=== PATIENT | male | born 1970 | race Caucasian/White ===

== ENCOUNTER 2024-10-19 23:11 | Emergency (ER) | payer BC, SELFPAY ==
--- NOTE | ~2024-10-19 | CT_ITS ---
CLINICAL INDICATION: Left groin pain. Dysuria. COMPARISON: None. TECHNIQUE: Multiple contiguous axial images of the abdomen and pelvis were performed without the admi nistration of intravenous contrast The dose-length product (DLP) was 1397.55 mGy-cm. Automated exposure control and iterative reconstruction technique were employed. FINDINGS/OBSERVATIONS: Visualized lower thorax: Interstitial thickening within the bilateral lung bases. The remainder of the lungs are clear. The heart is of normal size, without pericardial effusion. Small hiatal hernia is present. Liver: The liver demonstrates homogeneous attenuation and is not enlarged measuring 16 cm in longitudinal di mension. Gallbladder and biliary system: The gallbladder is surgically absent. Pancreas: Limited evaluation of the pancreas secondary to the lack of intravenous contrast. Spleen: The spleen demonstrates homogeneous attenuation and is not enlarged measuring 8 cm in longitudinal di mension. Kidneys: A 3 mm nonobstructing calculus is identified within the upper pole of the left kidney. Mild left-sided hydroureteronephrosis extending to the left ureterovesicular junction where a 6.5 mm calculus is identified. The right kidney and ureter are unremarkable. Adrenal glands: Unremarkable. Gastrointestinal tract: Unremarkable. Appendix: The appendix is not definitively visualized. However, no pericecal inflammatory change is identified suggest the presence of acute appendicitis. Vasculature: Unremarkable. Lymph nodes: No pathologically enlarged or morphologically suspicious lymph nodes within the retroperitoneum or at the root of the mesentery. Pelvic structures: The bladder is only minimally distended, and contains the complex 6.5 mm calcified stone. The prostate gland is not enlarged. Body wall and musculoskeletal: Trace degenerative disease within the lumbosacral spine at the level of L5/S1 with osteophyte formati on and disc space narrowing. IMPRESSION: Mild left-sided hydroureteronephrosis secondary to a 6.5 mm stone within the distal margin of the lef t ureterovesicular junction, likely recently passed. Reviewed, dictated and finalized at location A. TECH IMPRESSION: Mild left-sided hydroureteronephrosis secondary to a 6.5 mm stone within the di stal margin of the left ureterovesicular junction, likely recently passed.
[2024-10-19 23:15] VITALS: BP 121/83; PULSE 90; RESP 22; TEMP 36.6; O2SAT 99
[2024-10-19 23:26] LABS: Basophils Absolute Auto 0.1 K/mm3 (0.0-0.1); Basophils Percent Auto 0.7 % (0.2-1.2); Eosinophils Absolute Auto 0.4 K/mm3 (0-0.3); Eosinophils Percent Auto 4.4 % (0-4.4); Hematocrit 46.7 % (42.0-52.0); Hemoglobin 16.2 g/dL (14.0-18.0); Immature Granulocyte Absolute 0.01 K/mm3 (0.00-0.031); Immature Granulocyte Percent A 0.1 % (0-0.5); Lymphocytes Absolute Auto 3.15 K/mm3 (0.9-3.2); Lymphocytes Percent Auto 37.9 % (18.3-44.2); Mean Corpuscular HGB Conc 34.7 g/dl (32-36); Mean Corpuscular Hemoglobin 31.2 pg (26-34); Mean Corpuscular Volume 89.8 fl (80-100); Mean Platelet Volume 9.2 fl (7.4-10.4); Monocytes Absolute Auto 0.8 K/mm3 (0.1-0.6); Monocytes Percent Auto 9.1 % (2.6-8.5); Neutrophils Percent Auto 47.8 % (45.5-73.1); Platelet Count Result 316 k/mm3 (150-375); Red Cell Distribution Width 13.3 % (11.5-14.5); White Blood Count 8.3 K/mm3 (4.5-10.0)
[2024-10-19 23:35] LABS: Alanine Aminotransferase 33 U/L (6-50); Albumin Level 4.9 g/dL (3.5-5.1); Alkaline Phosphatase 52 U/L (38-126); Anion Gap 12 mmol/L (4-12); Aspartate Amino Transferase 27 U/L (17-59); Blood Urea Nitrogen 18 mg/dL (9-20); Calcium 9.8 mg/dL (8.4-10.2); Carbon Dioxide 26 mmol/L (22-30); Chloride 104 mmol/L (98-107); Estimated CRCL calculation 100 ml/min; Estimated Glomerular Filt Rate > 60; Glucose 106 mg/dL (65-110); Lipase 159 U/L (23-300); Potassium 3.7 mmol/L (3.4-5.0); Sodium 142 mmol/L (137-145)
--- NOTE | 2024-10-19 23:46 | ED_ITS ---
HPI - Abdominal Pain General Chief Complaint: Abdominal Pain Stated Complaint: I think Im passing a kidney stone Time Seen by Provider: 10/19/24 23:27 Source: patient Mode of arrival: ambulatory Limitations: no limitations History of Present Illness HPI narrative: This is a 54 year old male that presents to the ER for left lower abdominal pain. Ongoing over the last hour. Reports associated nausea. Also reports dysuria. Denies fevers, vomiting, hematuria. Related Data Allergies Allergy/AdvReac Type Severity Reaction Status Date / Time No Known Allergies Allergy Verified 10/19/24 23:18 Review of Systems 2 Review of Systems: CONSTITUTIONAL: Denies fever GASTROINTESTINAL: Reports abdominal pain, nausea. Denies vomiting, or diarrhea. GENITOURINARY: Denies hematuria. All systems reviewed & are unremarkable except as noted in HPI and below PMFSH Past Medical History Medical History (Updated 10/20/24 @ 01:19 by Sherir Craft PA-C) History of hyperlipidemia Social History Social History (Updated 10/20/24 @ 01:19 by Sherri Craft PA-C) Smoking status: Never smoker Exam 2 Narrative: GENERAL: Uncomfortable, well-nourished, and in no acute distress. HEAD: Normocephalic, atraumatic. EYES: EOMI. CHEST: Clear to auscultation. No respiratory distress. No wheezes rales or rhonchi HEART: Regular rate and rhythm. No murmur heard. Normal peripheral pulses. ABDOMEN: Soft, nontender, nondistended, normal active bowel sounds. EXTREMITIES: Normal range of motion. No edema. SKIN: Warm, dry, no rash. NEURO: No focal deficits. Alert and oriented x3. PSYCH: Normal mood and affect Course Course Emergency Course: patient updated on his workup. Resting comfortably Vital Signs Vital signs: Vital Signs Temperature 98 F 10/19/24 23:15 Pulse Rate 90 10/19/24 23:15 Respiratory Rate 22 H 10/19/24 23:15 Blood Pressure 121/83 10/19/24 23:15 Pulse Oximetry 99 10/19/24 23:15 Oxygen Delivery Room Air 10/19/24 23:15 Temperature 98 F 10/19/24 23:15 Pulse Rate 90 10/19/24 23:15 Respiratory Rate 22 H 10/19/24 23:15 Blood Pressure 121/83 10/19/24 23:15 Pulse Oximetry 99 10/19/24 23:15 Oxygen Delivery Room Air 10/19/24 23:15 MDM - Abdominal Pain MDM Narrative Medical decision making narrative: Patient presents to the emergency department for left-sided lower abdominal pain. He is afebrile and nontoxic appearing. Cbc without leukocytosis. Metabolic panel with normal kidney function. Urine with red blood cells, no signs of infection. CT abdomen pelvis shows a 6.5 mm stone in the left UVJ. patient updated on his workup. Resting comfortably. Reports he has an appointment with Urology on Thursday. He was given warnings to return to the ER Differential Diagnosis Differential diagnosis: Likely calculus of kidney and diverticulitis Lab Data Attestation: I reviewed the patient's lab results. 10/19/24 23:20 10/19/24 23:20 Labs: Lab Results 10/19/24 10/19/24 Range/Units 23:20 23:52 WBC 8.3 (4.5-10.0) K/mm3 RBC 5.20 (4.6-6.20) M/mm3 Hgb 16.2 (14.0-18.0) g/dL Hct 46.7 (42.0-52.0) % MCV 89.8 (80-100) fl MCH 31.2 (26-34) pg MCHC 34.7 (32-36) g/dl RDW 13.3 (11.5-14.5) % Plt Count 316 (150-375) k/mm3 MPV 9.2 (7.4-10.4) fl Immature Gran % (Auto) 0.1 (0-0.5) % Neut % (Auto) 47.8 (45.5-73.1) % Lymph % (Auto) 37.9 (18.3-44.2) % Bee % (Auto) 9.1 H (2.6-8.5) % Eos % (Auto) 4.4 (0-4.4) % Baso % (Auto) 0.7 (0.2-1.2) % Lymph # (Auto) 3.15 (0.9-3.2) K/mm3 Bee # (Auto) 0.8 H (0.1-0.6) K/mm3 Eos # (Auto) 0.4 H (0-0.3) K/mm3 Baso # (Auto) 0.1 (0.0-0.1) K/mm3 Abs Immat Gran (auto) 0.01 (0.00-0.031) K/mm3 Absolute Neuts (auto) 4.0 (1.3-6.7) K/mm3 Absolute Nucleated RBC 0.000 (0.0-0.012) K/mm3 Nucleated RBC % 0.0 (0.0-0.2) % Sodium 142 (137-145) mmol/L Potassium 3.7 (3.4-5.0) mmol/L Chloride 104 (98-107) mmol/L Carbon Dioxide 26 (22-30) mmol/L Anion Gap 12 (4-12) mmol/L BUN 18 (9-20) mg/dL Creatinine 0.90 (0.7-1.3) mg/dL Estim Creat Clear Calc 100 ml/min Estimated GFR > 60 (59 - ) Glucose 106 (65-110) mg/dL Calcium 9.8 (8.4-10.2) mg/dL Total Bilirubin 1.0 (0.2-1.3) mg/dL AST 27 (17-59) U/L ALT 33 (6-50) U/L Alkaline Phosphatase 52 (38-126) U/L Total Protein 8.0 (6.3-8.2) g/dL Albumin 4.9 (3.5-5.1) g/dL Lipase 159 (23-300) U/L Urine Color Yellow (Yellow) Urine Appearance Clear (Clear) Urine pH 5.0 (5.0-9.0) Ur Specific [place] 1.029 (1.001-1.035) Urine Protein Negative (Negative) mg/dL Urine Glucose (UA) Negative (Negative) mg/dL Urine Ketones Trace H (Negative) mg/dL Ur Blood (Man) 1+ H (Negative) Urine Nitrate Negative (Negative) Urine Bilirubin Negative (Negative) Urine Urobilinogen 1.0 (<2.0) mg/dL Leukocyte Esterase Rfl Negative (Negative) IVY/UL Urine RBC 11-20 H (0-2) /hpf Urine WBC 0-5 (0-3) /hpf Ur Squamous Epith Cells None seen (Few) /hpf Urine Bacteria None seen /hpf Urine Casts 0-2 Imaging Data Radiologist's impression: ITS Impressions Abdomen/Pelvis CT 10/20/24 00:21 IMPRESSION: Mild left-sided hydroureteronephrosis secondary to a 6.5 mm stone within the distal margin of the left ureterovesicular junction, likely recently passed. Critical Care Time Critical Care Time Critical Care Time: No Discharge Plan Discharge Clinical Impression: Kidney stone on left side Patient Disposition: Home, Self-Care Condition: Improved Instructions: Kidney Stones (ED), How to Strain Your Urine (ED) Additional Instructions: Return to the ER if you experience fever, abdominal pain with nausea and vomiting, you are unable to keep down liquids or solids, or any other symptoms that are concerning to you Remain well hydrated. [id number] pain medication as needed. Prescribed pain medication as needed. Take tamsulosin as prescribed Follow up with urology at your scheduled appointment Patient Language: Uzbek Prescriptions: New tamsulosin 0.4 mg capsule 0.4 mg PO DAILY 7 Days Qty: 7 0RF hydrocodone-acetaminophen 5-325 mg tablet 1 tablet PO Q6H PRN (Reason: pain) Qty: 20 0RF Follow-up/Referrals: UNKNOWN,DOCTOR [Primary Care Provider] - Justus Bhardwaj MD [Physician] -
[2024-10-19] MEDS: MORPHINE SULFATE (*CRX) 4 MG/ML INJ IV PUSH (23:54)
[2024-10-19] MEDS: ONDANSETRON INJ 4 MG/2 ML VIAL IV PUSH (23:54)
[2024-10-20 00:12] LABS: Add Urine Microscopic? YES; Appearance Urine Clear (Clear); Bacteria Urine None Seen /hpf; Bilirubin Urine Negative (Negative); Blood Urine 1+ (Negative); Color Urine Yellow (Yellow); Glucose Urine UA Negative (Negative); Ketones Urine Trace mg/dL (Negative); Leukocyte Esterase Ur Negative LEU/UL (Negative); Nitrate Urine Negative (Negative); Non Pathogenic Casts 0-2; Protein Urine Negative (Negative); Specific Grav Ur 1.029 (1.001-1.035); Squamous Epithelial Cell Urine None Seen /hpf (Few); WBC Urine 0-5 /hpf (0-3)
--- OUTSIDE RECORDS SUMMARY | 2024-10-20 00:41 | XMS_ITS | Referral Summary ---
Author Organization [facility] Address [address] [place] [address] Care Team Providers Care Gluing Machine Operator Automatic Name Role Phone Alix Hernandez Primary Care Provider + Allergies No known active allergies Medications gemfibroziL (LOPID) 600 mg tabletIndicatio ns:Hypertriglyc eridemia Take 1 tablet (600 mg total) by mouth daily 90 tablet 3 3 Active icosapent ethyL (Vascepa) 1 gram capsule Take 2 capsules (2 g total) by mouth 2 (two) times a day 360 capsule 3 3 Active HYDROcodone-justin taminophen (NORCO) 5-325 mg per tabletIndicatio ns:Pain Take 1 tablet by mouth every 6 (six) hours as needed for pain 10 tablet 4 Active albuterol HFA (PROVENTIL HFA,VENTOLIN HFA,PROAIR HFA) 90 mcg/actuation inhaler Inhale 2 puffs every 4 (four) hours as needed for shortness of breath 6.7 g 4 Active Active Problems Problem Noted Date Diagnosed Date Vitamin D deficiency 11/05/2016 Assessment & Plan (05/18/2023 4:22 PM CDT): Start OTC Vitamin D supplement, 8791-1522 international units daily Assessment & Plan (10/01/2022 4:23 PM HE[employer] RECORDS TECHNOLOGY TEACHER): Recheck levels with next set of labs Chronic pancreatitis (CMS/HCC) 02/20/2016 Hypertriglyceridemia 02/20/2016 Assessment & Plan (05/18/2023 4:22 PM CDT): Stable, no changes. Continue current regimen with Vascepa and Lopid Assessment & Plan (10/01/2022 4:23 PM HEALTH RECORDS TECHNOLOGY TEACHER): Lipid panel worsening Noncompliant with diet/exercise Will work on this Increase lopid to 600mg BID Restart vascepa - will see if insurance will cover. If not, ok to go back to fish oil as previously doing Assessment & Plan (05/29/2020 8:00 PM CDT): Triglycerdies worsening, but total and LDL cholesterol decreased. Will restart his Lopid, once daily. May continue fish oil - warned of risk of elevated LDL, but historically, LDL decreased with fish oil use Hypogonadism in male 02/20/2016 Assessment & Plan (05/18/2023 4:22 PM CDT): Endo referral Check testosterone levels Immunizations Name Administration Dates Next Due Influenza, Quadrivalent, Spl it, Intramuscular 07/03/2016 Influenza, Unspecified 06/07/2022(Deferr ed: Patient decision),06/07/2021(Deferred: Patient decision),06/07/2020(Deferred: Patient Refused),06/07/2019(Deferred: Patient Refused) Social History Tobacco Use Types Packs/Day Years Used Date Smoking Tobacco: Never Smokeless Tobacco: Never Tobacco Cessation:Counseling Given: Not Answered Alcohol Use Standard Drinks/Week Comments Never 0 (1 standard drink = 0.6 oz pur e alcohol) AUDIT-C Answer Date Recorded Q1: How often do you have a drink containing alc ohol? Never 07/16/2021 Average Number of Drinks Not on file 021 Q3: How often do you have si x or more drinks on one occasion? Never 07/16/2021 PHQ-2 Answer Date Recorded PHQ-2 Total Score (If total score is 3 or more points, staff should administer the PHQ-9) 0 10/01/2022 Personal Safety Answer Date Recorded Have you ever been in or are you currently in a harmful physical or emotional relationship or is someone making you feel afraid or unsafe? Denies 09/08/2023 Sex and Gender Information Value Date Recorded Sex Assigned at Not on file Legal Sex Male 5:28 PM HEALTH RECORDS TECHNOLOGY TEACHER Gender Identity Not on file Sexual Orientation Not on file Last Filed Vital Signs Vital Sign Reading Time Taken Comments Blood Pressure 134/89 09/08/2023 11:35 PM HE[employer] RECORDS TECHNOLOGY TEACHER Pulse 75 09/08/2023 11:58 PM HE[employer] RECORDS TECHNOLOGY TEACHER Temperature 36.6 C (97.9 F) 09/08/2023 9:49 PM HE[employer] RECORDS TECHNOLOGY TEACHER Respiratory Rate 20 09/08/2023 11:58 PM HE[employer] RECORDS TECHNOLOGY TEACHER Oxygen Saturation 97% 09/08/2023 11:58 PM HE[employer] RECORDS TECHNOLOGY TEACHER Inhaled Oxygen Concentration - - Weight 104.3 kg (229 lb 15 oz) 09/08/2023 9:49 P M HE[employer] TECH[employer]OLOGY TEACHER Height 177.8 cm (5' 10 ) 09/08/2023 9:49 PM HE[employer] RECORDS TECHNOLOGY TEACHER Body Mass Index 32.99 09/08/2023 9:49 PM HE[employer] RECORDS TECHNOLOGY TEACHER Plan of Treatment Not on file Procedures Procedure Name Priority Date/Time Associated Diagnosis Comments PSA SCREEN Routine 01/18/2022 7:53 AM CDT Screening for prostate cancer from Last 3 Months or Most Recently Relevant to Health Maintenance Results * PSA screen (01/18/2022 7:53 AM CDT) PSA 0.74 < OR = 4.00 ng/mL [facility] Comment: The total PSA value from this assay system is standardized against the WHO standard. The test result will be approximately 20% lower when compared to the equimolar-standardized total PSA (Bogdan Goldy). Comparison of serial PSA results should be interpreted with this fact in mind. This test was performed using the Siemens chemiluminescent method. Values obtained from different assay methods cannot be used interchangeably. PSA levels, regardless of value, should not be interpreted as absolute evidence of the presence or absence of disease. Blood specimen (specimen) 01/18/2022 7:53 AM CDT 01/18/2022 7:53 AM CDT Narrative [facility] - 01/19/2022 10:39 AM CDT FASTING:YES FASTING: YES Bridgette ROSADO LAB BLOOD ORDERABLES Final Resul t [facility] [id number] [id number] from Last 3 Months or Most Recently Relevant to Health Maintenance Insurance INTTRA PR INTTRA PR Care Teams Gluing Machine Operator Automatic Relationship Specialty Start Date End Date Alix Hernandez PA PCP - General Family Medicine 09/25/20
--- OUTSIDE RECORDS SUMMARY | 2024-10-20 00:42 | XMS_ITS | Patient Health Summary ---
Author Organization [facility] Address [address] [place] [address] Care Team Providers Care Tool Engineer Name Role Phone Paco Tian DO Primary Care Provider [phone] Note from [facility],non-owned Affiliates and Associated Physician Practices is amultiple site organization consisting of ambulatory clinics and hospital sitesin [place], [place], [place] and [place]. This disclosure is being madepursuant to the Care Everywhere program and may not contain all information available regarding this patient. Last updated 18.[facility] Allergies No known active allergies Medications * Be aware that medications may not be up to date on this document. Alwaysverify current medications with the patient. * Fritch-3 Fatty Acids (fish oil) 500 MG capsule Take 1,500 (one thousand five hundred) mg by mouth 4 times daily * gemfibrozil (Lopid) 600 MG tablet(Started 08/08/2024) Take 1 (one) tablet by mouth 2 times daily 3 refills by 08/08/2025 Ended Medications* cephalexin (Keflex) 500 MG capsule(Started 10/12/2024)() Take 1 (one) capsule by mouth 2 times daily for 7 days Active Problems Problem Noted Date Diagnosed Date Vitamin D deficiency 11/05/2016 10/09/2023 Chronic pancreatitis 02/20/2016 10/09/2023 Hypertriglyceridemia 02/20/2016 10/09/2023 Hypogonadism in male 02/20/2016 10/09/2023 Immunizations * FLU VACCINE QUAD IIV4 SPLIT 0.25 ML IM(Given 07/03/2016) Social History Tobacco Use Types Packs/Day Years Used Date Smoking Tobacco: Never Smokeless Tobacco: Never Tobacco Cessation:Counseling Given: Not Answered Alcohol Use Standard Drinks/Week Comments Never 0 (1 standard drink = 0.6 oz pur e alcohol) PHQ-2 Answer Date Recorded Patient Health Questionnaire-2 Score 0 10/12/2024 Sex and Gender Information Value Date Recorded Sex Assigned at Not on file Gender Identity Not on file Sexual Orientation Not on file Last Filed Vital Signs Vital Sign Reading Time Taken Comments Blood Pressure 118/82 10/12/2024 7:46 AM YARD SWITCHER Pulse 65 10/12/2024 7:46 AM YARD SWITCHER Temperature - - Respiratory Rate 18 2024 1:18 PM YARD SWITCHER Oxygen Saturation 98% 10/12/2024 7:46 AM YARD SWITCHER Inhaled Oxygen Concentration - - Weight 102.5 kg (226 lb) 10/12/2024 7:46 AM YARD SWITCHER Height 177.8 cm (5' 10 ) 2024 1:18 PM YARD SWITCHER Body Mass Index 32.43 2024 1:18 PM YARD SWITCHER Procedures * URINALYSIS - POINT OF CARE(Performed 10/12/2024) Performed for Frequency of urination * HEMOGLOBIN A1C - POINT OF CARE (AMB)(Performed 08/19/2024) Performed for Elevated glucose * COMPREHENSIVE METABOLIC PANEL(Performed 08/08/2024) * CBC W AUTO DIFFERENTIAL(Performed 08/08/2024) * HEMOGLOBIN A1C(Performed 08/08/2024) * PROSTATE SPECIFIC ANTIGEN SCREEN(Performed 08/08/2024) * LIPID PROFILE(Performed 08/08/2024) * COLOGUARD TEST(Performed 11/06/2023) Performed for Encounter for colorectal cancer screening * LAB RESULTS ORDER(Performed 05/02/2023) * LAB RESULTS ORDER(Performed 09/13/2022) * LAB RESULTS ORDER(Performed 01/19/2022) Results * URINALYSIS - POINT OF CARE (10/12/2024) Clarity UA POCT clear Color UA POCT yellow Leukocyte UA negative Negative Nitrite UA POCT negative Negative Urobilinogen UA 0.2 0.1 - 1.0 Protein UA POCT negative Negative pH UA 6.0 5.0 - 8.0 pH units Blood UA negative Negtive Specific [place] UA POCT 1.010 1.002 - 1.030 Ketone UA negative Negative Bilirubin UA POCT negative Negative Glucose UA negative Negative Urine URINE / Unknown 10/12/2024 Brianda Jiang APRN-CHILD CARE TEAM LEAD LAB - POINT OF C ARE ORDERABLES * HEMOGLOBIN A1C - POINT OF CARE (HgbA1C) (08/19/2024 8:42 AM YARD SWITCHER) Pathologist [facility] Hemoglobin A1c POCT 5.4 % [facility] Expiration Date 08/10/2025 [facility] Lot # [id number] [facility] QC Verified Yes Yes [facility] Blood BLOOD SPECIMEN / Unknown 08/19/2024 8:42 AM YARD SWITCHER Paco Tian DO LAB - POINT OF CARE ORDERABLES [facility] [address] [place] [address], [facility] [phone] * (ABNORMAL) COMPREHENSIVE METABOLIC PANEL (08/08/2024 7:12 AM YARD SWITCHER) Pathologist [facility] Glucose 106(H) 65 - 99 mg/dL [facility] Comment: Fasting reference interval For someone without known diabetes, a glucose value between 100 and 125 mg/dL is consistent with prediabetes and should be confirmed with a follow-up test. BUN 16 7 - 25 mg/dL [facility] Creatinine 0.79 0.70 - 1.30 mg/dL [facility] eGFR by Cystatin C 108 > OR = 60 mL/min/1. 73m2 [facility] BUN/Creatinine Ratio SEE NOTE: 6 - 22 (calc) [facility] Comment: Not Reported: BUN and Creatinine are within reference range. Sodium 140 135 - 146 mmol/L [facility] Potassium 4.5 3.5 - 5.3 mmol/L [facility] Chloride 104 98 - 110 mmol/L [facility] CO2 30 20 - 32 mmol/L [facility] Calcium 9.9 8.6 - 10.3 mg/dL [facility] Protein Total 7.1 6.1 - 8.1 g/dL [facility] Albumin 4.6 3.6 - 5.1 g/dL [facility] Globulin Total 2.5 1.9 - 3.7 g/dL (calc) [facility] Albumin/Globulin Ratio 1.8 1.0 - 2.5 (calc) [facility] Bilirubin Total 0.7 0.2 - 1.2 mg/dL [facility] Alkaline Phosphatase 50 35 - 144 U/L [facility] AST 20 10 - 35 U/L [facility] ALT 30 9 - 46 U/L [facility] Comment: Test Performed at: [facility] [id number] [id number] CHATO REED MD 08/08/2024 7:12 AM YARD SWITCHER 08/08/2024 7:12 AM YARD SWITCHER Paco Tian DO LAB - CHEMISTRY [place] [facility] [address] [place] [address] * CBC WITH DIFFERENTIAL (08/08/2024 7:10 AM YARD SWITCHER) White Blood Cell Count 5.5 3.8 - 10.8 Thousand/u L [facility] RBC 4.76 4.20 - 5.80 Million/uL [facility] Hemoglobin 15.0 13.2 - 17.1 g/dL [facility] Hematocrit 42.8 38.5 - 50.0 % [facility] MCV 89.9 80.0 - 100.0 fL [facility] MCH 31.5 27.0 - 33.0 pg [facility] MCHC 35.0 32.0 - 36.0 g/dL [facility] Comment: For adults, a slight decrease in the calculated MCHC value (in the range of 30 to 32 g/dL) is most likely not clinically significant; however, it should be interpreted with caution in correlation with other red cell parameters and the patient's clinical condition. RDW 12.7 11.0 - 15.0 % [facility] Platelet Count 287 140 - 400 Thousand/u L [facility] MPV 9.8 7.5 - 12.5 fL [facility] Neutrophil Absolute 2849 1500 - 7800 cells/uL [facility] Lymphocytes Absolute 1958 850 - 3900 cells/uL [facility] Absolute Monocytes 473 200 - 950 cells/uL [facility] Eosinophils Absolute 160 15 - 500 cells/uL [facility] Basophils Absolute 61 0 - 200 cells/uL [facility] Granulocytes % 51.8 % [facility] Lymphocytes % 35.6 % [facility] Monocytes % 8.6 % [facility] Eosinophils % 2.9 % [facility] Basophils % 1.1 % [facility] Comment: Test Performed at: [facility] [id number] [id number] CHATO REED MD 08/08/2024 7:10 AM YARD SWITCHER 08/08/2024 7:11 AM YARD SWITCHER Paco Tian DO LAB - HEMATOLOGY ORD ERABLES Performing Organization Address [facility] de Phone Number [place] [phone] * HEMOGLOBIN A1C (08/08/2024 7:07 AM YARD SWITCHER) Hemoglobin A1c TNP % of total Hgb [facility] Comment: TEST NOT PERFORMED The specimen type required for the add-on test was not originally collected. Test Performed at: [facility] [email or web address] [place] [id number] CHATO REED MD 08/08/2024 7:07 AM YARD SWITCHER 08/08/2024 7:08 AM YARD SWITCHER Paco Tian DO LAB - CHEMISTRY ORDE RABADRIANA Performing Organization Address [facility] [place] [address] * PROSTATE SPECIFIC ANTIGEN SCREEN (08/08/2024 7:07 AM YARD SWITCHER) PSA 0.88 < OR = 4.00 ng/mL [facility] Comment: The total PSA value from this [...] of the presence or absence of disease. Test Performed at: [facility] [address] [place] [place] [id number] CHATO REED MD 08/08/2024 7:07 AM YARD SWITCHER 08/08/2024 7:08 AM YARD SWITCHER Paco Tian DO LAB - CHEMISTRY ORDE RABADRIANA Performing Organization Address [facility] [place] [address] * (ABNORMAL) LIPID PROFILE (08/08/2024 7:07 AM YARD SWITCHER) Cholesterol 212(H) <200 mg/dL [facility] HDL Cholesterol 40 > OR = 40 mg/dL [facility] Triglycerides 358(H) <150 mg/dL [facility] Comment: If a non-fasting specimen was collected, consider repeat triglyceride testing on a fasting specimen if clinically indicated. Ace et al. J. of Clin. Lipidol. 2015;9:129-169. LDL Calculated 121(H) mg/dL (calc) [facility] Comment: Reference range: <100 Desirable range <100 mg/dL for primary prevention; <70 mg/dL for patients with CHD or diabetic patients with > or = 2 CHD risk factors. LDL-C is now calculated using the Reinaldo-Ro calculation, which is a validated novel method providing better accuracy than the Friedewald equation in the estimation of LDL-C. Reinaldo COLBERT et al. ANTOINE. 2013;310(19): 8253-2784 (http://education.[employer]/faq/TSR239) CHOL/HDLC RATIO 5.3(H) <5.0 (calc) [facility] Non HDL Cholesterol 172(H) <130 mg/dL (calc) [facility] Comment: For patients with diabetes plus 1 major ASCVD risk factor, treating to a non-HDL-C goal of <100 mg/dL (LDL-C of <70 mg/dL) is considered a therapeutic option. Test Performed at: [facility] [address] [place] [address] CHATO REED MD 08/08/2024 7:07 AM YARD SWITCHER 08/08/2024 7:08 AM YARD SWITCHER Paco Tian DO LAB - CHEMISTRY [address] [place] [address] [place] [address] * COLOGUARD TEST (11/06/2023 8:30 AM YARD SWITCHER) Cologuard Negative Negative [facility] Comment: NEGATIVE TEST RESULT. A negative Cologuard result indicates a low likelihood that a colorectal cancer (CRC) or advanced adenoma (adenomatous polyps with more advanced pre-malignant features) is present. The chance that a person with a negative Cologuard test has a colorectal cancer is less than 1 in 1500 (negative predictive value >99.9%) or has an advanced adenoma is less than 5.3% (negative predictive value 94.7%). These data are based on a prospective cross-sectional study of 10,000 individuals at average risk for colorectal cancer who were screened with both Cologuard and colonoscopy. (Javon Vidal al, N Engl J Med 2014;370(14):5482-0158) The normal value (reference range) for this assay is negative. COLOGUARD RE-SCREENING RECOMMENDATION: Periodic colorectal cancer screening is an important part of preventive healthcare for asymptomatic individuals at average risk for colorectal cancer. Following a negative Cologuard result, the [place] [employer] Society and U.S. Multi-Society Task Force screening guidelines recommend a Cologuard re-screening interval of 3 years. References: [place] [employer] Guideline for Colorectal Cancer Screening: https://www.cancer.org/cancer/lbdgy-megwnn-uakdvw/npehgnoax-nrfjhhtpz-uzuyauu/ acs-recommendations.html.; Mateo DK, Delon CR, Shadia McintoshK, Colorectal Cancer Screening: Recommendations for Physicians and Patients from the U.S. Multi-Society Task Force on Colorectal Cancer Screening , Am J Gastroenterology 2017; 112:8764-9827. TEST DESCRIPTION: Composite algorithmic analysis of stool DNA-biomarkers with hemoglobin immunoassay. Quantitative values of individual biomarkers are not reportable and are not associated with individual biomarker result reference ranges. Cologuard is intended for colorectal cancer screening of adults of either sex, 45 years or older, who are at average-risk for colorectal cancer (CRC). Cologuard has been approved for use by the U.S. FDA. The performance of Cologuard was established in a cross sectional study of average-risk adults aged 50-84. Cologuard performance in patients ages 45 to 49 years was estimated by sub-group analysis of near-age groups. Colonoscopies performed for a positive result may find as the most clinically significant lesion: colorectal cancer [4.0%', advanced adenoma (including sessile serrated polyps greater than or equal to 1cm diameter) [20%' or non- advanced adenoma [31%'; or no colorectal neoplasia [45%'. These estimates are derived from a prospective cross-sectional screening study of 10,000 individuals at average risk for colorectal cancer who were screened with both Cologuard and colonoscopy. (Javon Vidal al, N Engl J Med 2014;370(14):0388-1364.) Cologuard may produce a false negative or false positive result (no colorectal cancer or precancerous polyp present at colonoscopy follow up). A negative Cologuard test result does not guarantee the absence of CRC or advanced adenoma (pre-cancer). The current Cologuard screening interval is every 3 years. ([place] [employer] and U.S. Multi-Society Task Force). Cologuard performance data in a 10,000 patient pivotal study using colonoscopy as the reference method can be accessed at the following location: www.[employer]/results. Additional description of the Cologuard test process, warnings and precautions can be found at www.cologuard.com. Stool STOOL SPECIMEN / Unknown 11/06/2023 8:30 AM YARD SWITCHER 11/07/2023 6:14 AM YARD SWITCHER Paco Tian DO LAB - CHEMISTRY [facility] Organization Address City/State/[facility] Co de Phone Number [facility] [address] [place] [address] [facility] [address] [place] [address]. [place] [address] * LAB RESULTS ORDER (05/02/2023) Only the most recent of3 resultswithin the time period is included. 05/02/2023 Narrative 05/02/2023 Ordered by an unspecified provider. Scanned Document LAB - THERAPEUTIC DR BRADY MONITORING ORDERABLES Care Teams Tool Engineer Relationship Specialty Start Date End Date Paco Tian DO [address] [address] PCP - General Family Medicine 10/09/23
--- OUTSIDE RECORDS SUMMARY | 2024-10-20 00:42 | XMS_ITS | Clinical Summary ---
Author Organization [facility] Address [address] [place] [address] Care Team Providers Care Tree Worker Name Role Phone Paco Tian DO Primary Care Provider [phone] Source Comments [facility],non-owned Affiliates and Associated Physician Practices is amultiple site organization consisting of ambulatory clinics and hospital sitesin [place], [place], [place] and [place]. This disclosure is being madepursuant to the Care Everywhere program and may not contain all information available regarding this patient. Last updated 18.[facility] [place] Allergies No known active allergies Medications * Be aware that medications may not be up to date on this document. Alwaysverify current medications with the patient. Medication Sig Dispensed Refills Start Date End Date Status Wilton-3 Fatty Acids (fish oil) 500 MG capsule Take 1,500 (one thousand five hundred) mg by mouth 4 times daily Active gemfibrozil (Lopid) 600 MG tablet Take 1 (one) tablet by mouth 2 times daily 90 tablet 3 08/08/2024 Active cephalexin (Keflex) 500 MG capsuleIndications :Dental infection Take 1 (one) capsule by mouth 2 times daily for 7 days 14 capsule 10/12/2024 10/19/2024 Active Problems Problem Noted Date Diagnosed Date Vitamin D deficiency 11/05/2016 10/09/2023 Overview (10/09/2023): Last Assessment & Plan: Start OTC Vitamin D supplement, 1359-7460 international units daily Chronic pancreatitis 02/20/2016 10/09/2023 Hypertriglyceridemia 02/20/2016 10/09/2023 Overview (10/09/2023): Last Assessment & Plan: Stable, no changes. Continue current regimen with Vascepa and Lopid Hypogonadism in male 02/20/2016 10/09/2023 Overview (10/09/2023): Last Assessment & Plan: Endo referral Check testosterone levels Encounters Date Type Department Care Team Description 10/12/2024 8:00 AM [facility] Office Visit [address] [address] Brianda Jiang APRN-JOSE Dental infection (Primary Dx); Frequency of urination 10/11/[address] [address] Paco Tian DO Appointment; Reminder Call 08/19/2024 8:15 AM [facility] Clinical Support [address] [address] Elevated glucose 2024 1:30 PM [facility] Office Visit [address] [address] Paco Tian DO Hypertriglyceridemia (Primary Dx); Idiopathic chronic pancreatitis (HCC); Class 1 obesity due to excess calories without serious comorbidity with body mass index (BMI) of 33.0 to 33.9 in adult 08/08/2024 Orders Only [address] [address] Paco Tian DO 08/08/2024 Orders Only [address] [address] Lana Pearson RN 08/08/[address] [address] Paco Tian DO MEDICATION REFILL from Last 3 Months Immunizations Name Administration Dates Next Due FLU VACCINE QUAD IIV4 SPLIT 0.25 ML IM 6 Family History Medical History Relation Name Comments None Known Father Cancer - Other Maternal Grandmother CVA Mother Relation Name Status Comments Father Maternal Grandmother Mother Social History Tobacco Use Types Packs/Day Years [...] Comments Blood Pressure 118/82 10/12/2024 7:46 AM [facility] Pulse 65 10/12/2024 7:46 AM [facility] Temperature - - Respiratory Rate 18 2024 1:18 PM [facility] Oxygen Saturation 98% 10/12/2024 7:46 AM [facility] Inhaled Oxygen Concentration - - Weight 102.5 kg (226 lb) 10/12/2024 7:46 AM [facility] Height 177.8 cm (5' 10 ) 2024 1:18 PM [facility] Body Mass Index 32.43 2024 1:18 PM [facility] Plan of Treatment Upcoming Encounters Date Type Department Care Team (Late st Contact Info) Description 08/14/2025 7:30 AM [facility] Office Visit [facility] - Family Medicine [address] [place] [address] Paco Tian DO [address] [address] Health Maintenance Due Date Last Done Comments COLON MONITORING 1972 COLONOSCOPY - COLON CA SCREENING 1972 CT COLONOGRAPHY - COLON CA SCREENING 1972 FIT - COLON CA SCREENING 1972 FLEX SIG - COLON CA SCREENING 1972 HIV SCREENING 1987 HEPATITIS C SCREENING 08/08/1990 DTAP/TDAP/TD VACCINES (1 - Tdap) 1991 HEPATITIS B VACCINE (1 of 3 - 19+ 3-dose series) 1991 PNEUMOCOCCAL VACCINE 50+ (1 of 1 - PCV) 2022 ZOSTER VACCINE (1 of 2) 2022 COVID-19 VACCINE (1 - 2023-2 5 season) 2024 INFLUENZA VACCINE (#1) 2024 07/03/2016 COLOGUARD (AGES 45-75) - COL ON CA SCREENING 11/05/2026 11/06/2023 Colorectal Cancer Screening 11/05/2026 SCREENING FOR DIABETES 08/19/2027 , 08/08/2024, 08/08/2024 LIPID TESTING 08/08/2029 08/08/2024 DEPRESSION SCREENING Completed 10/12/2024, 10/09/2023 HIB VACCINE Aged Out No longer eligi ble based on patient's age to complete this topic HPV VACCINE Aged Out No longer eligi ble based on patient's age to complete this topic MENINGOCOCCAL (Group B) VACCINE Aged Out No longer eligible b ased on patient's age to complete this topic MENINGOCOCCAL VACCINE Aged Out No castro lorena eligible based on patient's age to complete this topic Procedures Procedure Name Priority Date/Time Associated Diagnosis Comments URINALYSIS - POINT OF CARE Routine 10/12/2024 Frequency of urination HEMOGLOBIN A1C - POINT OF CARE (AMB) Routine 08/19/2024 8:42 AM [facility] Elevated glucose COMPREHENSIVE METABOLIC PANEL 08/08/2024 7:12 AM [facility] CBC W AUTO DIFFERENTIAL 08/08/2024 7:10 AM [facility] HEMOGLOBIN A1C 08/08/2024 7:07 AM [facility] PROSTATE SPECIFIC ANTIGEN SCREEN 08/08/2024 7:07 AM [facility] LIPID PROFILE 08/08/2024 7:07 AM [facility] COLOGUARD TEST Routine 11/06/2023 8:30 AM [facility] Encounter for colorectal cancer screening from Last 3 Months or Most Recently Relevant to Health Maintenance Results * URINALYSIS - POINT OF CARE (10/12/2024) [facility] Clarity UA POCT clear Color UA POCT yellow Leukocyte UA negative Negative Nitrite UA POCT negative Negative Urobilinogen UA 0.2 0.1 - 1.0 Protein UA POCT negative Negative pH UA 6.0 5.0 - 8.0 pH units Blood UA negative Negtive Specific [place] UA POCT 1.010 1.002 - 1.030 Ketone UA negative Negative Bilirubin UA POCT negative Negative Glucose UA negative Negative Urine URINE / Unknown 10/12/2024 Brianda Jiang [employer] LAB - POINT OF C ARE ORDERABLES * HEMOGLOBIN A1C - POINT OF CARE (HgbA1C) (08/19/2024 8:42 AM [facility]) [facility] Hemoglobin A1c POCT 5.4 % [facility] Expiration Date 08/10/2025 [facility] Lot # [id number] [facility] QC Verified Yes Yes [facility] Blood BLOOD SPECIMEN / Unknown 08/19/2024 8:42 AM [facility] Paco Tian DO LAB - POINT OF CARE ORDERABLES [facility] [address] [phone] * (ABNORMAL) COMPREHENSIVE METABOLIC PANEL (08/08/2024 7:12 AM [facility]) [facility] Glucose 106(H) 65 - 99 mg/dL [facility] [...] 46 U/L [facility] Comment: Test Performed at: [facility] [address] [place] [address] CHATO REED MD 08/08/2024 7:12 AM [facility] 08/08/2024 7:12 AM [facility] Paco Tian DO LAB - CHEMISTRY [facility] [place] [address] [place] [address] * CBC WITH DIFFERENTIAL (08/08/2024 7:10 AM [facility]) White Blood Cell Count 5.5 3.8 - [...] 1.1 % [facility] Comment: Test Performed at: [facility] [address] [place] [address] CHATO REED MD 08/08/2024 7:10 AM [facility] 08/08/2024 7:11 AM [facility] Paco Tian DO LAB - HEMATOLOGY ORD ERABLES Performing Organization Address [facility] de Phone Number [facility] [address] [place] [address] * HEMOGLOBIN A1C (08/08/2024 7:07 AM [facility]) Hemoglobin A1c TNP % of total Hgb [facility] Comment: TEST NOT PERFORMED The specimen type required for the add-on test was not originally collected. Test Performed at: [facility] [address] [place] [address] CHATO REED MD 08/08/2024 7:07 AM [facility] 08/08/2024 7:08 AM [facility] Paco Tian DO LAB - CHEMISTRY ORDE RABLES Performing Organization Address [facility] de Phone Number [facility] [address] [place] [address] * PROSTATE SPECIFIC ANTIGEN SCREEN (08/08/2024 7:07 AM [facility]) PSA 0.88 < OR = 4.00 ng/mL [...] or absence of disease. Test Performed at: [facility] [address] [facility] [place] [address] CHATO REED MD 08/08/2024 7:07 AM [facility] 08/08/2024 7:08 AM [facility] Paco Tian DO LAB - CHEMISTRY [facility] [address] [place] [address] * (ABNORMAL) LIPID PROFILE (08/08/2024 7:07 AM [facility]) Cholesterol 212(H) <200 mg/dL [facility] HDL Cholesterol [...] factors. LDL-C is now calculated using the Reinaldo-Starr calculation, which is a validated novel method providing better accuracy than the Friedewald equation in the estimation of LDL-C. Reinaldo SS et al. ANTOINE. 2013;310(19): 4769-1607 (http://education.[employer].Flooved/faq/UHJ843) CHOL/HDLC RATIO 5.3(H) <5.0 (calc) [facility] Non HDL Cholesterol 172(H) <130 mg/dL (calc) [facility] Comment: For patients with diabetes plus 1 major ASCVD risk factor, treating to a non-HDL-C goal of <100 mg/dL (LDL-C of <70 mg/dL) is considered a therapeutic option. Test Performed at: [facility] [address] [facility] [place] [address] CHATO REED MD 08/08/2024 7:07 AM [facility] 08/08/2024 7:08 AM [facility] Paco Tian DO LAB - CHEMISTRY [facility] [address] [place] [address] * COLOGUARD TEST (11/06/2023 8:30 AM [facility]) Cologuard Negative Negative [facility] Comment: NEGATIVE TEST RESULT. A negative [...] screened with both Cologuard and colonoscopy. (Javon Bryan. et al, N Engl J Med 2014;370(14):3577-8534) The normal value (reference range) for this assay is negative. COLOGUARD RE-SCREENING RECOMMENDATION: Periodic colorectal cancer screening is an important part of preventive healthcare for asymptomatic individuals at average risk for colorectal cancer. Following a negative Cologuard result, the [place] [employer] Society and U.S. Multi-Society Task Force screening guidelines recommend a Cologuard re-screening interval of 3 years. References: [place] [employer] Guideline for Colorectal Cancer Screening: https://www.cancer.org/cancer/chcbm-lsewri-nroyls/kdcyweiht-onjvivfdw-ozwgncp/ acs-recommendations.html.; Mateo MCGUIRE, Delon CHANG, Shadia McintoshK, Colorectal Cancer Screening: Recommendations for Physicians and Patients from the U.S. Multi-Society Task Force on Colorectal Cancer Screening , Am J Gastroenterology 2017; 112:3862-2640. TEST DESCRIPTION: Composite algorithmic analysis of stool [...] screened with both Cologuard and colonoscopy. (Javon Cassidy et al, N Engl J Med 2014;370(14):3035-0090.) Cologuard may produce a false negative or false positive result (no colorectal cancer or precancerous polyp present at colonoscopy follow up). A negative Cologuard test result does not guarantee the absence of CRC or advanced adenoma (pre-cancer). The current Cologuard screening interval is every 3 years. ([place] [employer] Society and U.S. Multi-Society Task Force). Cologuard performance data in a 10,000 patient pivotal study using colonoscopy as the reference method can be accessed at the following location: www.PatientsLikeMe/results. Additional description of the Cologuard test process, warnings and precautions can be found at www.cologuard.com. Stool STOOL SPECIMEN / Unknown 11/06/2023 8:30 AM [facility] 11/07/2023 6:14 AM [facility] Paco Tian DO LAB - CHEMISTRY [facility] [address] [place] [address] [address] [place] [address] [facility] [address] [place] [address] [address] from Last 3 Months or Most Recently Relevant to Health Maintenance Care Teams Tree Worker Relationship Specialty Start Date End Date Paco Tian DO [address] [address] PCP - General Family Medicine 10/09/23
--- OUTSIDE RECORDS SUMMARY | 2024-10-20 00:42 | XMS_ITS | Clinical Summary ---
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 Gender Identity Not on file Sexual Orientation Not on file Plan of Treatment Health Maintenance Due Date Last Done Comments Hepatitis C Virus (HCV) Screening 1972 TdaP Immunization 1972 Hepatitis B Immunization (1 of 3 - 19+ 3-dose series) 1991 Colonoscopy 2017 Colorectal Cancer Screening 2017 Cologuard 2022 Immunochemical Fecal Occult Blood 2022 Pneumococcal Immunization (5 0+ years) (1 of 1 - PCV) 2022 Zoster Immunization (1 of 2) 2022 Influenza Immunization (#1) 2024 SARS-COV-2 Immunization ( - season) 2024 Respiratory Syncytial Virus (RSV) Immunization (Adult) (1 - 1-dose 75+ series) 2047 Meningococcal Immunization (ACWY) Aged Out No longer eligible based on patient's age to complete this topic Pneumococcal Immunization Combined Aged Out No longer eligible based on patient's age to complete this topic Rotavirus Immunization Aged Out No lo nger eligible based on patient's age to complete this topic
--- OUTSIDE RECORDS SUMMARY | 2024-10-20 00:42 | XMS_ITS | Referral Summary ---
Author Organization [facility] Address [address] [place] [address] Care Team Providers Care Chief Underwriter Name Role Phone Paco Tian DO Primary Care Provider [phone] Source Comments [facility],non-owned Affiliates and Associated Physician Practices is [facility] consisting of ambulatory clinics and hospital sitesin [place], [place], [place] and [place]. This disclosure is being madepursuant to the Care Everywhere program and may not contain all information available regarding this patient. Last updated 18.[facility] Encounters Date Type Department Care Team Description 10/12/2024 8:00 AM CENTRAL CONTROL ROOM OPERATOR Office Visit [facility] [address] [phone] Brianda Jiang APRN-JOSE Dental infection (Primary Dx); Frequency of urination 10/11/[address], [facility] [address] [place] [phone] Paco Tian DO Appointment; Reminder Call 08/19/2024 8:15 AM CENTRAL CONTROL ROOM OPERATOR Clinical Support [facility] [address] [facility], [facility] [address] [place] [phone] Elevated glucose 2024 1:30 PM CENTRAL CONTROL ROOM OPERATOR Office Visit [facility] [address] [facility], [address] [phone] Paco Tian DO Hypertriglyceridemia (Primary Dx); Idiopathic chronic pancreatitis (HCC); Class 1 obesity due to excess calories without serious comorbidity with body mass index (BMI) of 33.0 to 33.9 in adult 08/08/2024 Orders Only [facility] [address] [facility], [address] [place] [phone] Paco Tian DO 08/08/2024 Orders Only [facility] [address] [facility], [address] [place] [phone] Lana Pearson RN 08/08/2024 Refill [facility] [address] [facility], [facility] [address] [place] [phone] Paco Tian, MEDICATION REFILL from Last 3 Months Allergies No known active allergies Medications * Be aware that medications may not be up to date on this document. Alwaysverify current medications with the patient. Medication Sig Dispensed Refills Start Date End Date Status Avilla-3 Fatty Acids (fish oil) 500 MG capsule [...] & Plan: Start OTC Vitamin D supplement, 2919-9578 international units daily Chronic pancreatitis 02/20/2016 10/09/2023 Hypertriglyceridemia 02/20/2016 10/09/2023 Overview (10/09/2023): Last Assessment & Plan: Stable, no changes. Continue current regimen with Vascepa and Lopid Hypogonadism in male 02/20/2016 10/09/2023 Overview (10/09/2023): Last Assessment & Plan: Endo referral Check testosterone levels Immunizations Name Administration Dates Next Due FLU VACCINE QUAD IIV4 SPLIT 0.25 ML IM 6 Social History Tobacco Use Types Packs/Day Years [...] Comments Blood Pressure 118/82 10/12/2024 7:46 AM CENTRAL CONTROL ROOM OPERATOR Pulse 65 10/12/2024 7:46 AM CENTRAL CONTROL ROOM OPERATOR Temperature - - Respiratory Rate 18 2024 1:18 PM CENTRAL CONTROL ROOM OPERATOR Oxygen Saturation 98% 10/12/2024 7:46 AM CENTRAL CONTROL ROOM OPERATOR Inhaled Oxygen Concentration - - Weight 102.5 kg (226 lb) 10/12/2024 7:46 AM CENTRAL CONTROL ROOM OPERATOR Height 177.8 cm (5' 10 ) 2024 1:18 PM CENTRAL CONTROL ROOM OPERATOR Body Mass Index 32.43 2024 1:18 PM CENTRAL CONTROL ROOM OPERATOR Plan of Treatment Upcoming Encounters Date Type Department Care Team (Late st Contact Info) Description 08/14/2025 7:30 AM CENTRAL CONTROL ROOM OPERATOR Office Visit [facility] - Family Medicine [address] [place] [phone] Paco Tian DO [address] [place] [address] Procedures Procedure Name Priority Date/Time Associated Diagnosis Comments URINALYSIS - POINT OF CARE Routine 10/12/2024 Frequency of urination HEMOGLOBIN A1C - POINT OF CARE (AMB) Routine 08/19/2024 8:42 AM CENTRAL CONTROL ROOM OPERATOR Elevated glucose COMPREHENSIVE METABOLIC PANEL 08/08/2024 7:12 AM CENTRAL CONTROL ROOM OPERATOR CBC W AUTO DIFFERENTIAL 08/08/2024 7:10 AM CENTRAL CONTROL ROOM OPERATOR HEMOGLOBIN A1C 08/08/2024 7:07 AM CENTRAL CONTROL ROOM OPERATOR PROSTATE SPECIFIC ANTIGEN SCREEN 08/08/2024 7:07 AM CENTRAL CONTROL ROOM OPERATOR LIPID PROFILE 08/08/2024 7:07 AM CENTRAL CONTROL ROOM OPERATOR COLOGUARD TEST Routine 11/06/2023 8:30 AM CENTRAL CONTROL ROOM OPERATOR Encounter for colorectal cancer screening from Last 3 Months or Most Recently Relevant to Health Maintenance Results * URINALYSIS - POINT OF CARE (10/12/2024) [facility] Clarity UA POCT clear Color UA POCT yellow Leukocyte UA negative Negative Nitrite UA POCT negative Negative Urobilinogen UA 0.2 0.1 - 1.0 Protein UA POCT negative Negative pH UA 6.0 5.0 - 8.0 pH units Blood UA negative Negtive Specific [place] UA POCT 1.010 1.002 - 1.030 Ketone UA negative Negative Bilirubin UA POCT negative Negative Glucose UA negative Negative Urine URINE / Unknown 10/12/2024 Brianda [facility] - POINT OF C ARE ORDERABLES * HEMOGLOBIN A1C - POINT OF CARE (HgbA1C) (08/19/2024 8:42 AM CENTRAL CONTROL ROOM OPERATOR) [facility] Hemoglobin A1c POCT 5.4 % [facility] Expiration Date 08/10/2025 [facility] Lot # [id number] [facility] QC Verified Yes Yes [facility] Blood BLOOD SPECIMEN / Unknown 08/19/2024 8:42 AM CENTRAL CONTROL ROOM OPERATOR Paco Tian DO LAB - POINT OF CARE ORDERABLES [facility] [address] [phone] * (ABNORMAL) COMPREHENSIVE METABOLIC PANEL (08/08/2024 7:12 AM CENTRAL CONTROL ROOM OPERATOR) [facility] Glucose 106(H) 65 - 99 mg/dL [...] mL/min/1. 73m2 [facility] BUN/Creatinine Ratio SEE NOTE: - (calc) [facility] Comment: Not Reported: BUN and [...] 46 U/L [facility] Comment: Test Performed at: [facility] [id number] [place] [address] CHATO REED MD 08/08/2024 7:12 AM CENTRAL CONTROL ROOM OPERATOR 08/08/2024 7:12 AM CENTRAL CONTROL ROOM OPERATOR Paco Tian DO LAB - CHEMISTRY KIKO [place] [facility] [address] [place] [address] * CBC WITH DIFFERENTIAL (08/08/2024 7:10 AM CENTRAL CONTROL ROOM OPERATOR) White Blood Cell Count 5.5 3.8 - [...] 1.1 % [facility] Comment: Test Performed at: [facility] [email or web address] [address] CHATO REED MD 08/08/2024 7:10 AM CENTRAL CONTROL ROOM OPERATOR 08/08/2024 7:11 AM CENTRAL CONTROL ROOM OPERATOR Paco Tian DO LAB - HEMATOLOGY ORD ERABLES Performing Organization Address [facility] de Phone Number [facility] [address] [place] [phone] * HEMOGLOBIN A1C (08/08/2024 7:07 AM CENTRAL CONTROL ROOM OPERATOR) Pathologist [facility] Hemoglobin A1c TNP % of total Hgb [facility] Comment: TEST NOT PERFORMED The specimen type required for the add-on test was not originally collected. Test Performed at: [employer] [facility], [employer] [id number] CHATO REED MD 08/08/2024 7:07 AM CENTRAL CONTROL ROOM OPERATOR 08/08/2024 7:08 AM CENTRAL CONTROL ROOM OPERATOR Paco Tian DO LAB - CHEMISTRY ORDE RABLES Performing Organization Address [facility] de Phone Number [facility] [address] [place] [address] * PROSTATE SPECIFIC ANTIGEN SCREEN (08/08/2024 7:07 AM CENTRAL CONTROL ROOM OPERATOR) Pathologist [facility] PSA 0.88 < OR = 4.00 ng/mL [facility] Comment: The total PSA value from this assay system is standardized against the WHO standard. The test result will be approximately 20% lower when compared to the equimolar-standardized total PSA (Bogdan [place]). Comparison of serial PSA results should be interpreted with this fact in mind. This test was performed using the Siemens chemiluminescent method. Values obtained from different assay methods cannot be used interchangeably. PSA levels, regardless of value, should not be interpreted as absolute evidence of the presence or absence of disease. Test Performed at: [facility] [address] [facility] [address] CHTAO REED MD 08/08/2024 7:07 AM CENTRAL CONTROL ROOM OPERATOR 08/08/2024 7:08 AM CENTRAL CONTROL ROOM OPERATOR Paco Tian DO LAB - CHEMISTRY PATRICKE SHAKEEL [facility] [address] [place] [address] * (ABNORMAL) LIPID PROFILE (08/08/2024 7:07 AM CENTRAL CONTROL ROOM OPERATOR) Cholesterol 212(H) <200 mg/dL [facility] HDL Cholesterol [...] LDL-C. Reinaldo SS et al. ANTOINE. 2013;310(19): 2067-4055 (http://education.wise.io/faq/ZNQ561) CHOL/HDLC RATIO 5.3(H) <5.0 (calc) [facility] Non HDL Cholesterol 172(H) <130 mg/dL (calc) [facility] Comment: For patients with diabetes plus 1 major ASCVD risk factor, treating to a non-HDL-C goal of <100 mg/dL (LDL-C of <70 mg/dL) is considered a therapeutic option. Test Performed at: [email or web address] [address] [address] [place] [address] CHATO REED MD 08/08/2024 7:07 AM CENTRAL CONTROL ROOM OPERATOR 08/08/2024 7:08 AM CENTRAL CONTROL ROOM OPERATOR Paco Tian DO LAB - CHEMISTRY ORDE SHAKEEL [facility] [address] [place] [address] * COLOGUARD TEST (11/06/2023 8:30 AM CENTRAL CONTROL ROOM OPERATOR) Cologuard Negative Negative [facility] Comment: NEGATIVE TEST RESULT. A negative [...] Cassidy et al, N Engl J Med 2014;370(14):6919-6895) The normal value (reference range) for this assay is negative. COLOGUARD RE-SCREENING RECOMMENDATION: Periodic colorectal cancer screening is an important part of preventive healthcare for asymptomatic individuals at average risk for colorectal cancer. Following a negative Cologuard result, the [employer] Cancer Society and U.S. Multi-Society Task Force screening guidelines recommend a Cologuard re-screening interval of 3 years. References: [employer] Guideline for Colorectal Cancer Screening: https://www.cancer.org/cancer/cvgwc-unuoso-vdrmgp/tzkkbyitw-znpvqjhtq-oyjicgh/ acs-recommendations.html.; Mateo DK, Delon CHANG, Shadia JORDAN, Colorectal Cancer Screening: Recommendations for Physicians and Patients from the U.S. Multi-Society Task Force on Colorectal Cancer Screening , Am J Gastroenterology 2017; 112:1621-4274. TEST DESCRIPTION: Composite algorithmic analysis of stool [...] Bryan. et al, N Engl J Med 2014;370(14):4575-0856.) Cologuard may produce a false negative or false positive result (no colorectal cancer or precancerous polyp present at colonoscopy follow up). A negative Cologuard test result does not guarantee the absence of CRC or advanced adenoma (pre-cancer). The current Cologuard screening interval is every 3 years. ([place] Cancer Society and U.S. Multi-Society Task Force). Cologuard performance data in a 10,000 patient pivotal study using colonoscopy as the reference method can be accessed at the following location: www.BrightArch.Pharmacopeia/results. Additional description of the Cologuard test process, warnings and precautions can be found at www.[employer] Ther[employer]rd.com. Stool STOOL SPECIMEN / Unknown 11/06/2023 8:30 AM CENTRAL CONTROL ROOM OPERATOR 11/07/2023 6:14 AM CENTRAL CONTROL ROOM OPERATOR Paco [place] DO LAB - CHEMISTRY ORDE RABLES [facility] [address] [facility] [address] [place] [address] [facility] [address] [address] [facility] [place] [address] from Last 3 Months or Most Recently Relevant to Health Maintenance Care Teams Chief Underwriter Relationship Specialty Start Date End Date Paco Tian DO [address] [address] PCP - General Family Medicine 10/09/23
--- OUTSIDE RECORDS SUMMARY | 2024-10-20 00:42 | XMS_ITS | Clinical Summary ---
Author Organization [facility] [place] [facility] Address [address] [place] [address] Care Team Providers Care Computational Theory Scientist Name Role Phone Alix Hernandez Primary Care [...] PM CDT): Start OTC Vitamin D supplement, [id number] international units daily Assessment & Plan (10/01/2022 4:23 PM JIG BORING MACHINE SET UP OPERATOR): Recheck levels with next set of labs Chronic pancreatitis (CMS/HCC) 02/20/2016 Hypertriglyceridemia 02/20/2016 Assessment & Plan (05/18/2023 4:22 PM CDT): Stable, no changes. Continue current regimen with Vascepa and Lopid Assessment & Plan (10/01/2022 4:23 PM JIG BORING MACHINE SET UP OPERATOR): Lipid panel worsening Noncompliant with diet/exercise Will [...] decision),06/07/2021(Deferred: Patient decision),06/07/2020(Deferred: Patient Refused),06/07/2019(Deferred: Patient Refused) Surgical History Surgery Date Site/Laterality Comments CHOLECYSTECTOMY Medical History Medical History Date Comments Hyperlipemia Family History Medical History Relation Name Comments No Known Problems Father Breast cancer Maternal Grandmother No Known Problems Mother Relation Name Status Comments Father Maternal [...] on file Legal Sex Male 5:28 PM JIG BORING MACHINE SET UP OPERATOR Gender Identity Not on file Sexual Orientation Not on file Obstetrics History Last Filed Vital Signs Vital Sign Reading Time Taken Comments Blood Pressure 134/89 09/08/2023 11:35 PM JIG BORING MACHINE SET UP OPERATOR Pulse 75 09/08/2023 11:58 PM JIG BORING MACHINE SET UP OPERATOR Temperature 36.6 C (97.9 F) 09/08/2023 9:49 PM JIG BORING MACHINE SET UP OPERATOR Respiratory Rate 20 09/08/2023 11:58 PM JIG BORING MACHINE SET UP OPERATOR Oxygen Saturation 97% 09/08/2023 11:58 PM JIG BORING MACHINE SET UP OPERATOR Inhaled Oxygen Concentration - - Weight 104.3 kg (229 lb 15 oz) 09/08/2023 9:49 P M JIG BORING MACHINE SET UP OPERATOR Height 177.8 cm (5' 10 ) 09/08/2023 9:49 PM JIG BORING MACHINE SET UP OPERATOR Body Mass Index 32.99 09/08/2023 9:49 PM JIG BORING MACHINE SET UP OPERATOR Plan of Treatment Health Maintenance Due Date Last Done Comments Colon Cancer Screening-Colonoscopy 1972 Hepatitis C Screening 1972 DTaP/Tdap/Td Vaccine (1 - Tdap) 1983 Hepatitis B Screening 1990 Regular Well Visit/Exam 18-64 1990 Zoster Vaccine (1 of 2) 2022 Depression Screening 10/01/2023 10/01/2022, 07/16/2021, 05/28/2020 Prostate Cancer Screening-PSA 01/19/2024, 06/29/2017 Influenza Vaccine (#1) 2024 07/03/2016 Pneumococcal vaccine <65 Aged Out No longer eligible based on patient's age to complete this topic Procedures Procedure Name Priority Date/Time Associated Diagnosis Comments PSA SCREEN Routine 01/18/2022 7:53 AM CDT Screening for prostate cancer from Last 3 Months or Most Recently Relevant to Health Maintenance Results * PSA screen (01/18/2022 7:53 AM CDT) PSA 0.74 < OR = 4.00 ng/mL [facility] Comment: The total PSA value from this assay system is standardized against the WHO standard. The test result will be approximately 20% lower when compared to the equimolar-standardized total PSA (Bogdan [place]). Comparison of serial PSA results should be [...] 01/19/2022 10:39 AM CDT FASTING:YES FASTING: YES us Bridgette ROSADO LAB BLOOD ORDERABLES Final Resul t VICKI [facility] [address] [place] [address] from Last 3 Months or Most Recently Relevant to Health Maintenance [place] Care Teams Computational Theory Scientist Relationship Specialty Start Date End Date Alix Hernandez PA PCP - General Family Medicine 09/25/20
[2024-10-20] MEDS: KETOROLAC 15 MG/ML VIAL (*BKC) IV PUSH (00:47)
[2024-10-20] MEDS: SODIUM CHLORIDE 0.9% IV 1,000 ML 999 ML IV CONT (00:47)
[2024-10-20 02:22] VITALS: BP 142/86; PULSE 89; RESP 16; O2SAT 100
--- NOTE | 2024-10-20 14:56 | W.PM.PROC2 ---
Procedure Note - Detailed Date of Procedure 10/20/24 Pre-op Diagnosis Left renal stone Post-op Diagnosis Same Procedure Performed Left ESWL Surgeon Emanuel Maravilla MD Anesthesia General Description of Procedure The patient was brought to the operative suite where she was placed in the supine position on the Dornier lithotripsy table. The focal point of the lithotripter was placed at a 8-9mm left renal calculus. A total of 2500 shocks were delivered at a power setting of 4. There appeared to be good fragmentation of the stone. The patient tolerated the procedure well and was taken to the recovery room in good condition. Drains No Packing No Pathology None sent Complications No immediate complications
== END 2024-10-20 02:22 | disposition home or self-care (01) ==
PROVIDERS: Emergency Medicine; Emergency Provider Physician Assistant
DX: N20.0 Calculus of kidney (principal); E78.5 Hyperlipidemia, unspecified
CPT/HCPCS: 36415; 74176; 80053; 81001; 83690; 85025; 96361; 96374; 96375; 99284; J1885; J2270; J2405; J7030

== ENCOUNTER 2024-10-21 12:22 | Outpatient (CLI) | payer BC, SELFPAY ==
--- NOTE | ~2024-10-21 | XR_ITS ---
Exam: Abdomen 1V HISTORY: history of kidney stones COMPARISON: Noncontrast enhanced CT examination of the abdomen and pelvis performed 2 days earlier TECHNIQUE: Supine images of the abdomen FINDINGS: Bowel gas pattern is non-obstructive. There is no free air or deep sulci. No pathologic calcifications are seen. Lung bases are unremarkable. Bones and soft tissues are unremarkable. IMPRESSION: Nonspecific, nonobstructive bowel gas pattern. No calcified stones project over the bilateral kidneys, or along the expected course of the bilateral ureters. Reviewed, dictated and finalized at location A. NT ACQUISITION SPECIALIST IMPRESSION: Nonspecific, nonobstructive bowel gas pattern. No calcified stones project over the bilateral kidneys, or along the expected c ourse of the bilateral ureters.
--- OUTSIDE RECORDS SUMMARY | 2024-10-21 12:29 | XMS_ITS | Encounter Summary ---
Author Organization [facility] Address [address] [facility] [place] [address] Care Team Providers Care Diamond Picker Name Role Phone Paco Tian DO Primary Care Provider [phone] Reason for Visit * Reason Onset Date Comments Insurance Issue/question 10/21/2024 Encounter Details Date Type Department Care Team (Late st Contact Info) Description 10/21/2024 Nurse Triage [facility] - Family Medicine [address] [facility] [address] [place] [phone] Paco Tian DO [address] [address] Insurance Issue/question Social History Tobacco Use Types Packs/Day Years Used Date Smoking Tobacco: Never Smokeless Tobacco: Never Alcohol Use Standard Drinks/Week Comments Never 0 (1 standard drink = 0.6 oz pur e alcohol) PHQ-2 Answer Date Recorded Patient Health Questionnaire-2 Score 0 10/12/2024 Sex and Gender Information Value Date Recorded Sex Assigned at Not on file Gender Identity Not on file Sexual Orientation Not on file documented as of this encounter Miscellaneous Notes * Telephone Encounter - Latoya Flores RN - 10/21/2024 9:27 AM CST Patient calling office to state that he believes he provided the wrong insurance information at his10/12 appointment in [facility]. He states he was just notified the other day by another provider that the insurance card he has been providing is no good. He states after further looking into this, his new member ID/group # are the following: Group #: [id number] [facility] Patient inquiring if this can be corrected. AL ECONOMIST documented in this encounter Plan of Treatment Upcoming Encounters Date Type Department Care Team (Late st Contact Info) Description 08/14/2025 7:30 AM SOCIAL ECONOMIST Office Visit [facility] - Family Medicine [address] [phone] Paco Tian DO [address] [address] documented as of this encounter Visit Diagnoses Not on filedocumented in this encounter Care Teams Diamond Picker Relationship Specialty Start Date End Date Paco Tian DO [address] [address] PCP - General Family Medicine 10/09/23 documented as of this encounter
--- OUTSIDE RECORDS SUMMARY | 2024-10-21 12:29 | XMS_ITS | Clinical Summary ---
Author Organization [facility] Address [address] [facility] [address] [place] [address] Care Team Providers Care Nail Kegger Name Role Phone Paco Tian DO Primary Care Provider [phone] Source Comments [facility],non-owned Affiliates and Associated Physician Practices is amultiple site organization consisting of ambulatory clinics and hospital sitesin [place], [place], [place] and [place]. This disclosure is being madepursuant to the Care Everywhere program and may not contain all information available regarding this patient. Last updated 18.[facility] Allergies No known active allergies Medications * Be aware that medications may not be up to date on this document. Alwaysverify current medications with the patient. Medication Sig Dispensed Refills Start Date End Date Status [place]-3 Fatty Acids (fish oil) 500 MG capsule [...] & Plan: Start OTC Vitamin D supplement, 1627-2477 international units daily Chronic pancreatitis 02/20/2016 10/09/2023 Hypertriglyceridemia 02/20/2016 10/09/2023 Overview (10/09/2023): Last Assessment & Plan: Stable, no changes. Continue current regimen with Vascepa and Lopid Hypogonadism in male 02/20/2016 10/09/2023 Overview (10/09/2023): Last Assessment & Plan: Endo referral Check testosterone levels Encounters Date Type Department Care Team Description 10/21/2024 Nurse Triage [address] [phone] Paco Tian DO Insurance Issue/question 10/12/2024 8:00 AM EXPLOSIVE EXPERT Office Visit [address] [phone] Brianda Jiang, AVELINA-GROUP HOME SUPERVISOR Dental infection (Primary Dx); Frequency of urination 10/11/[address] [address] Paco Tian DO Appointment; Reminder Call 08/19/2024 8:15 AM EXPLOSIVE EXPERT Clinical Support [address] [address] Elevated glucose 2024 1:30 PM EXPLOSIVE EXPERT Office Visit [address] [address] Paco Tian DO Hypertriglyceridemia (Primary Dx); Idiopathic chronic pancreatitis (HCC); Class 1 obesity due to excess calories without serious comorbidity with body mass index (BMI) of 33.0 to 33.9 in adult 08/08/2024 Orders Only [address] [address] Paco Tian DO 08/08/2024 Orders Only [address] [address] Lana Pearson RN 08/08/2024 Refill [facility] [address] [facility] [address] [place] [address] Paco Tian DO MEDICATION REFILL from Last [...] Comments Blood Pressure 118/82 10/12/2024 7:46 AM EXPLOSIVE EXPERT Pulse 65 10/12/2024 7:46 AM EXPLOSIVE EXPERT Temperature - - Respiratory Rate 18 2024 1:18 PM EXPLOSIVE EXPERT Oxygen Saturation 98% 10/12/2024 7:46 AM EXPLOSIVE EXPERT Inhaled Oxygen Concentration - - Weight 102.5 kg (226 lb) 10/12/2024 7:46 AM EXPLOSIVE EXPERT Height 177.8 cm (5' 10 ) 2024 1:18 PM EXPLOSIVE EXPERT Body Mass Index 32.43 2024 1:18 PM EXPLOSIVE EXPERT Plan of Treatment Upcoming Encounters Date Type Department Care Team (Late st Contact Info) Description 08/14/2025 7:30 AM EXPLOSIVE EXPERT Office Visit [facility] [address] [facility] [address] [place] [address] Paco Tian DO [address] [address] Health Maintenance Due Date Last Done Comments [...] Procedure Name Priority Date/Time Associated Diagnosis Comments LAB RESULTS ORDER 10/18/2024 URINALYSIS - POINT OF CARE Routine 10/12/2024 Frequency of urination HEMOGLOBIN A1C - POINT OF CARE (AMB) Routine 08/19/2024 8:42 AM EXPLOSIVE EXPERT Elevated glucose COMPREHENSIVE METABOLIC PANEL 08/08/2024 7:12 AM EXPLOSIVE EXPERT CBC W AUTO DIFFERENTIAL 08/08/2024 7:10 AM EXPLOSIVE EXPERT HEMOGLOBIN A1C 08/08/2024 7:07 AM EXPLOSIVE EXPERT PROSTATE SPECIFIC ANTIGEN SCREEN 08/08/2024 7:07 AM EXPLOSIVE EXPERT LIPID PROFILE 08/08/2024 7:07 AM EXPLOSIVE EXPERT COLOGUARD TEST Routine 11/06/2023 8:30 AM EXPLOSIVE EXPERT Encounter for colorectal cancer screening from Last 3 Months or Most Recently Relevant to Health Maintenance Results * LAB RESULTS ORDER (10/18/2024) 10/18/2024 Narrative 10/18/2024 Ordered by an unspecified provider. Scanned Document LAB - THERAPEUTIC DR JOSE ANTONIO MONITORING ORDERABLES * URINALYSIS - POINT OF CARE (10/12/2024) Clarity UA POCT clear Color UA POCT yellow Leukocyte UA negative Negative Nitrite UA POCT negative Negative Urobilinogen UA 0.2 0.1 - 1.0 Protein UA POCT negative Negative pH UA 6.0 5.0 - 8.0 pH units Blood UA negative Negtive Specific Marlin UA POCT 1.010 1.002 - 1.030 Ketone UA negative Negative Bilirubin UA POCT negative Negative Glucose UA negative Negative Urine URINE / Unknown 10/12/2024 Brianda SKINNER LAB - POINT OF C ARE ORDERABLES * HEMOGLOBIN A1C - POINT OF CARE (HgbA1C) (08/19/2024 8:42 AM EXPLOSIVE EXPERT) Hemoglobin A1c POCT 5.4 % [facility] Expiration Date 08/10/2025 [facility] Lot # [id number] [facility] QC Verified Yes Yes [facility] Blood BLOOD SPECIMEN / Unknown 08/19/2024 8:42 AM EXPLOSIVE EXPERT Paco Tian DO LAB - POINT OF CARE ORDERABLES [facility] [address] [place] [address], [facility] [phone] * (ABNORMAL) COMPREHENSIVE METABOLIC PANEL (08/08/2024 7:12 AM EXPLOSIVE EXPERT) Glucose 106(H) 65 - 99 mg/dL [facility] [...] 46 U/L [facility] Comment: Test Performed at: [facility] [place] [address] [place] [address] CHATO REED MD 08/08/2024 7:12 AM EXPLOSIVE EXPERT 08/08/2024 7:12 AM EXPLOSIVE EXPERT Paco Tian DO LAB - CHEMISTRY KIKO [place]EC[place] [facility] [address] [place] [address] * CBC WITH DIFFERENTIAL (08/08/2024 7:10 AM EXPLOSIVE EXPERT) White Blood Cell Count 5.5 3.8 - [...] 1.1 % [facility] Comment: Test Performed at: [facility] [employer] [address] CHATO REED MD 08/08/2024 7:10 AM EXPLOSIVE EXPERT 08/08/2024 7:11 AM EXPLOSIVE EXPERT Paco Tian DO LAB - HEMATOLOGY ORD ERABLES Performing Organization Address [facility] de Phone Number [facility] [address] [place] [address] * HEMOGLOBIN A1C (08/08/2024 7:07 AM EXPLOSIVE EXPERT) Hemoglobin A1c TNP % of total Hgb [facility] Comment: TEST NOT PERFORMED The specimen type required for the add-on test was not originally collected. Test Performed at: [facility] [id number] [employer] [address] CHATO REED MD 08/08/2024 7:07 AM EXPLOSIVE EXPERT 08/08/2024 7:08 AM EXPLOSIVE EXPERT Paco Tian DO LAB - CHEMISTRY ORDE RABLES Performing Organization Address [facility] Co de Phone Number [facility] [address] [place] [address] * PROSTATE SPECIFIC ANTIGEN SCREEN (08/08/2024 7:07 AM EXPLOSIVE EXPERT) PSA 0.88 < OR = 4.00 ng/mL [facility] Comment: The total PSA value from this assay system is standardized against the WHO standard. The test result will be approximately 20% lower when compared to the equimolar-standardized total PSA (Bogdan Ethel). Comparison of serial PSA results should be interpreted with this fact in mind. This test was performed using the Siemens chemiluminescent method. Values obtained from different assay methods cannot be used interchangeably. PSA levels, regardless of value, should not be interpreted as absolute evidence of the presence or absence of disease. Test Performed at: [facility] [id number] [place] [address] CHATO REED MD 08/08/2024 7:07 AM EXPLOSIVE EXPERT 08/08/2024 7:08 AM EXPLOSIVE EXPERT Paco Tian DO LAB - CHEMISTRY K[place]KO [place] [facility] [address] [place] [address] * (ABNORMAL) LIPID PROFILE (08/08/2024 7:07 AM EXPLOSIVE EXPERT) Cholesterol 212(H) <200 mg/dL [facility] HDL Cholesterol [...] LDL-C. Reinaldo COLBERT et al. ANTOINE. 2013;310(19): 1190-5821 (http://education.Applied NanoWorks.Zolpy/faq/EQE465) CHOL/HDLC RATIO 5.3(H) <5.0 (calc) [facility] Non HDL Cholesterol 172(H) <130 mg/dL (calc) [facility] Comment: For patients with diabetes plus 1 major ASCVD risk factor, treating to a non-HDL-C goal of <100 mg/dL (LDL-C of <70 mg/dL) is considered a therapeutic option. Test Performed at: [facility] [id number] [facility] [facility] [place] [address] CHATO REED MD 08/08/2024 7:07 AM EXPLOSIVE EXPERT 08/08/2024 7:08 AM EXPLOSIVE EXPERT Paco Tian DO LAB - CHEMISTRY [place] [facility] [address] [place] [address] * COLOGUARD TEST (11/06/2023 8:30 AM EXPLOSIVE EXPERT) Cologuard Negative Negative [facility] Comment: NEGATIVE TEST RESULT. A [...] (Javon Vidal al, N Engl J Med 2014;370(14):6814-4361) The normal value (reference range) for this assay is negative. COLOGUARD RE-SCREENING RECOMMENDATION: Periodic colorectal cancer screening is an important part of preventive healthcare for asymptomatic individuals at average risk for colorectal cancer. Following a negative Cologuard result, the [place] Cancer Society and U.S. Multi-Society Task Force screening guidelines recommend a Cologuard re-screening interval of 3 years. References: [place] [employer] Guideline for Colorectal Cancer Screening: https://www.cancer.org/cancer/hftyw-jcprao-caltrf/gvemtruzs-vhhcmaedk-efyzlzw/ acs-recommendations.html.; Mateo DK, Delon CR, Shadia McintoshK, Colorectal Cancer Screening: Recommendations for Physicians and Patients from the U.S. Multi-Society Task Force on Colorectal Cancer Screening , Am J Gastroenterology 2017; 112:2071-6816. TEST DESCRIPTION: Composite algorithmic analysis of stool [...] (Javon Vidal al, N Engl J Med 2014;370(14):8619-5993.) Cologuard may produce a false negative or false positive result (no colorectal cancer or precancerous polyp present at colonoscopy follow up). A negative Cologuard test result does not guarantee the absence of CRC or advanced adenoma (pre-cancer). The current Cologuard screening interval is every 3 years. ([place] Cancer Society and U.S. Multi-Society Task Force). Cologuard performance data in a 10,000 patient pivotal study using colonoscopy as the reference method can be accessed at the following location: www.Anxa/results. Additional description of the Cologuard test process, warnings and precautions can be found at www.CAXArd.com. Stool STOOL SPECIMEN / Unknown 11/06/2023 8:30 AM EXPLOSIVE EXPERT 11/07/2023 6:14 AM EXPLOSIVE EXPERT Paco Tian DO LAB - CHEMISTRY KIKO BECKFORD [facility] [address] [facility] [address] [place] [address] [facility] [address] [place] [address] [place] [address] from Last 3 Months or Most Recently Relevant to Health Maintenance Care Teams Nail Kegger Relationship Specialty Start Date End Date Paco Tian DO [address] [phone] PCP - General Family Medicine 10/09/23
--- OUTSIDE RECORDS SUMMARY | 2024-10-21 12:29 | XMS_ITS | Referral Summary ---
Author Organization [facility] Address [address] [place] [address] Care Team Providers Care Cold Water Machine Operator Name Role Phone Paco Tian DO Primary Care Provider [phone] Source Comments [facility],non-owned Affiliates and Associated Physician Practices is [facility] organization consisting of ambulatory clinics and hospital sitesin [place], [place], [place] and [place]. This disclosure is being madepursuant to the Care Everywhere program and may not contain all information available regarding this patient. Last updated 18.[facility] Encounters Date Type Department Care Team Description 10/21/2024 Nurse Triage [facility] [address] [facility], [address] [phone] Paco Tian DO Insurance Issue/question 10/12/2024 8:00 AM FERTILIZER SUPERVISOR Office Visit [facility] [address] [phone] Brianda Jiang, PEDIGREE TRACER-CASH POSTING CLERK Dental infection (Primary Dx); Frequency of urination 10/11/2024 Telephone [facility] [address] [facility], [address] [phone] Paco Tian DO Appointment; Reminder Call 08/19/2024 8:15 AM FERTILIZER SUPERVISOR Clinical Support [facility] [address] [facility], [address] [phone] Elevated glucose 2024 1:30 PM FERTILIZER SUPERVISOR Office Visit [facility] [address] [facility], [address] [phone] Paco Tian DO Hypertriglyceridemia (Primary Dx); Idiopathic chronic pancreatitis (HCC); Class 1 obesity due to excess calories without serious comorbidity with body mass index (BMI) of 33.0 to 33.9 in adult 08/08/2024 Orders Only [address], [address] [phone] Paco Tian DO 08/08/2024 Orders Only [address], [address] [address] Lana Pearson RN 08/08/[address], [address] [phone] Paco Tian DO MEDICATION REFILL from Last 3 Months Allergies No known active allergies Medications * Be aware that medications may not be up to date on this document. Alwaysverify current medications with the patient. Medication Sig Dispensed Refills Start Date End Date Status [place]-3 Fatty Acids (fish oil) 500 MG capsule [...] & Plan: Start OTC Vitamin D supplement, 7617-8679 international units daily Chronic pancreatitis 02/20/2016 10/09/2023 [...] Comments Blood Pressure 118/82 10/12/2024 7:46 AM FERTILIZER SUPERVISOR Pulse 65 10/12/2024 7:46 AM FERTILIZER SUPERVISOR Temperature - - Respiratory Rate 18 2024 1:18 PM FERTILIZER SUPERVISOR Oxygen Saturation 98% 10/12/2024 7:46 AM FERTILIZER SUPERVISOR Inhaled Oxygen Concentration - - Weight 102.5 kg (226 lb) 10/12/2024 7:46 AM FERTILIZER SUPERVISOR Height 177.8 cm (5' 10 ) 2024 1:18 PM FERTILIZER SUPERVISOR Body Mass Index 32.43 2024 1:18 PM FERTILIZER SUPERVISOR Plan of Treatment Upcoming Encounters Date Type Department Care Team (Late st Contact Info) Description 08/14/2025 7:30 AM FERTILIZER SUPERVISOR Office Visit [facility] [address] [facility] [address] [place] [address] Paco Tian DO [address] [address] Procedures Procedure Name Priority Date/Time Associated Diagnosis Comments LAB RESULTS ORDER 10/18/2024 URINALYSIS - POINT OF CARE Routine 10/12/2024 Frequency of urination HEMOGLOBIN A1C - POINT OF CARE (AMB) Routine 08/19/2024 8:42 AM FERTILIZER SUPERVISOR Elevated glucose COMPREHENSIVE METABOLIC PANEL 08/08/2024 7:12 AM FERTILIZER SUPERVISOR CBC W AUTO DIFFERENTIAL 08/08/2024 7:10 AM FERTILIZER SUPERVISOR HEMOGLOBIN A1C 08/08/2024 7:07 AM FERTILIZER SUPERVISOR PROSTATE SPECIFIC ANTIGEN SCREEN 08/08/2024 7:07 AM FERTILIZER SUPERVISOR LIPID PROFILE 08/08/2024 7:07 AM FERTILIZER SUPERVISOR COLOGUARD TEST Routine 11/06/2023 8:30 AM FERTILIZER SUPERVISOR Encounter for colorectal cancer screening from Last [...] pH units Blood UA negative Negtive Specific [place] UA POCT 1.010 1.002 - 1.030 Ketone UA negative Negative Bilirubin UA POCT negative Negative Glucose UA negative Negative Urine URINE / Unknown 10/12/2024 Brianda Jiang APRN-CASH POSTING CLERK LAB - POINT OF C ARE ORDERABLES * HEMOGLOBIN A1C - POINT OF CARE (HgbA1C) (08/19/2024 8:42 AM FERTILIZER SUPERVISOR) Hemoglobin A1c POCT 5.4 % [facility] Expiration Date 08/10/[address] [facility] Lot # [id number] [facility] QC Verified Yes Yes [facility] Blood BLOOD SPECIMEN / Unknown 08/19/2024 8:42 AM FERTILIZER SUPERVISOR Paco Tian DO LAB - POINT OF CARE ORDERABLES [facility] [address] [place], [place] [id number] [place] [address] * (ABNORMAL) COMPREHENSIVE METABOLIC PANEL (08/08/2024 7:12 AM FERTILIZER SUPERVISOR) Glucose 106(H) 65 - 99 mg/dL [facility] [...] 46 U/L [facility] Comment: Test Performed at: [facility] [address] [place] [place] [address] CHATO REED MD 08/08/2024 7:12 AM FERTILIZER SUPERVISOR 08/08/2024 7:12 AM FERTILIZER SUPERVISOR Paco Tian DO LAB - CHEMISTRY ORDE SHAKEEL [facility] [address] [place] [id number] * CBC WITH DIFFERENTIAL (08/08/2024 7:10 AM FERTILIZER SUPERVISOR) Pathologist [facility] White Blood Cell Count 5.5 3.8 - [...] 1.1 % [facility] Comment: Test Performed at: [employer] [facility] [address] [place] [address] CHATO REED MD 08/08/2024 7:10 AM FERTILIZER SUPERVISOR 08/08/2024 7:11 AM FERTILIZER SUPERVISOR Paco Tian DO LAB - HEMATOLOGY ORD ERABLES [place] [address] [place] [address] * HEMOGLOBIN A1C (08/08/2024 7:07 AM FERTILIZER SUPERVISOR) [facility] Hemoglobin A1c TNP % of total Hgb [facility] Comment: TEST NOT PERFORMED The specimen type required for the add-on test was not originally collected. Test Performed at: [facility] [id number] [facility] [place] [address] CHATO REED MD 08/08/2024 7:07 AM FERTILIZER SUPERVISOR 08/08/2024 7:08 AM FERTILIZER SUPERVISOR Paco Tian DO LAB - CHEMISTRY KIKO [place]EC[place] Performing Organization Address [facility] Phone Number [place] [phone] * PROSTATE SPECIFIC ANTIGEN SCREEN (08/08/2024 7:07 AM FERTILIZER SUPERVISOR) PSA 0.88 < OR = 4.00 ng/mL [...] or absence of disease. Test Performed at: [facility] [address] [address] [facility] [place] [address] CHATO REED MD 08/08/2024 7:07 AM FERTILIZER SUPERVISOR 08/08/2024 7:08 AM FERTILIZER SUPERVISOR Paco Tian DO LAB - CHEMISTRY KIKO SHAKEEL Performing Organization Address [facility] de Phone Number [place] [phone] [place] [address] * (ABNORMAL) LIPID PROFILE (08/08/2024 7:07 AM FERTILIZER SUPERVISOR) Cholesterol 212(H) <200 mg/dL [facility] HDL Cholesterol [...] factors. LDL-C is now calculated using the Saeed calculation, which is a validated novel method providing better accuracy than the Friedewald equation in the estimation of LDL-C. Reinaldo COLBERT et al. ANTOINE. 2013;310(19): 9478-5742 (http://education.Sportlobster.PerfectServe/faq/TRG858) CHOL/HDLC RATIO 5.3(H) <5.0 (calc) [facility] Non HDL Cholesterol 172(H) <130 mg/dL (calc) [facility] Comment: For patients with diabetes plus 1 major ASCVD risk factor, treating to a non-HDL-C goal of <100 mg/dL (LDL-C of <70 mg/dL) is considered a therapeutic option. Test Performed at: [facility] [address] [place] [address] CHATO REED MD 08/08/2024 7:07 AM FERTILIZER SUPERVISOR 08/08/2024 7:08 AM FERTILIZER SUPERVISOR Paco Tian DO LAB - CHEMISTRY KIKO BECKFORD [facility] [address] [place] [address] * COLOGUARD TEST (11/06/2023 8:30 AM FERTILIZER SUPERVISOR) Cologuard Negative Negative [facility] Comment: NEGATIVE TEST RESULT. A [...] (Javon Vidal al, N Engl J Med 2014;370(14):9271-1463) The normal value (reference range) for this assay is negative. COLOGUARD RE-SCREENING RECOMMENDATION: Periodic colorectal cancer screening is an important part of preventive healthcare for asymptomatic individuals at average risk for colorectal cancer. Following a negative Cologuard result, the [place] Cancer Society and U.S. Multi-Society Task Force screening guidelines recommend a Cologuard re-screening interval of 3 years. References: [place] Cancer Society Guideline for Colorectal Cancer Screening: https://www.cancer.org/cancer/srmcn-iwumil-addncs/tedblwzww-dzujxvxnu-uyqlymd/ acs-recommendations.html.; Mateo DK, Delon CHANG, Shadia JORDAN, Colorectal Cancer Screening: Recommendations for Physicians and Patients from the U.S. Multi-Society Task Force on Colorectal Cancer Screening , Am J Gastroenterology 2017; 112:1033-3915. TEST DESCRIPTION: Composite algorithmic analysis of stool [...] (Javon Vidal al, N Engl J Med 2014;370(14):2563-8237.) Cologuard may produce a false negative or false positive result (no colorectal cancer or precancerous polyp present at colonoscopy follow up). A negative Cologuard test result does not guarantee the absence of CRC or advanced adenoma (pre-cancer). The current Cologuard screening interval is every 3 years. ([place] Cancer Society and U.S. Multi-Society Task Force). Cologuard performance data in a 10,000 patient pivotal study using colonoscopy as the reference method can be accessed at the following location: www.Ballooning Nest Eggs/results. Additional description of the Cologuard test process, warnings and precautions can be found at www.cologuard.com. Stool STOOL SPECIMEN / Unknown 11/06/2023 8:30 AM FERTILIZER SUPERVISOR 11/07/2023 6:14 AM FERTILIZER SUPERVISOR Paco Tian DO LAB - CHEMISTRY KIKO BEC[place]FORD [facility] [address] [place] [address] [address] [place] [address] [facility] [address] [place] [address]. [place] [address] from Last 3 Months or Most Recently Relevant to Health Maintenance Care Teams Cold Water Machine Operator Relationship Specialty Start Date End Date Paco Tian DO [address] [address] PCP - General Family Medicine 10/09/23
--- OUTSIDE RECORDS SUMMARY | 2024-10-21 12:29 | XMS_ITS | Clinical Summary ---
Author Organization [facility] Center Address [address] [place] [address] Care Team Providers Care Director Of Event Sales Name Role Phone Alix Hrenandez Primary Care Provider + Allergies No known [...] PM CDT): Start OTC Vitamin D supplement, 5540-1488 international units daily Assessment & Plan (10/01/2022 4:23 PM SHOTBLAST OPERATOR): Recheck levels with next set of labs Chronic pancreatitis (CMS/HCC) 02/20/2016 Hypertriglyceridemia 02/20/2016 Assessment & Plan (05/18/2023 4:22 PM CDT): Stable, no changes. Continue current regimen with Vascepa and Lopid Assessment & Plan (10/01/2022 4:23 PM SHOTBLAST OPERATOR): Lipid panel worsening Noncompliant with diet/exercise [...] on file Legal Sex Male 5:28 PM SHOTBLAST OPERATOR Gender Identity Not on file Sexual Orientation Not on file Obstetrics History Last Filed Vital Signs Vital Sign Reading Time Taken Comments Blood Pressure 134/89 09/08/2023 11:35 PM SHOTBLAST OPERATOR Pulse 75 09/08/2023 11:58 PM SHOTBLAST OPERATOR Temperature 36.6 C (97.9 F) 09/08/2023 9:49 PM SHOTBLAST OPERATOR Respiratory Rate 20 09/08/2023 11:58 PM SHOTBLAST OPERATOR Oxygen Saturation 97% 09/08/2023 11:58 PM SHOTBLAST OPERATOR Inhaled Oxygen Concentration - - Weight 104.3 kg (229 lb 15 oz) 09/08/2023 9:49 P M SHOTBLAST OPERATOR Height 177.8 cm (5' 10 ) 09/08/2023 9:49 PM SHOTBLAST OPERATOR Body Mass Index 32.99 09/08/2023 9:49 PM SHOTBLAST OPERATOR Plan of Treatment Health Maintenance Due [...] PSA 0.74 < OR = 4.00 ng/mL [facility] Comment: The total PSA value from this assay system is standardized against the WHO standard. The test result will be approximately 20% lower when compared to the equimolar-standardized total PSA (Bogdan Longview). Comparison of serial PSA results should be [...] LAB BLOOD ORDERABLES Final Resul t V[facility]I [facility] [address] [place] [address] from Last 3 Months or Most Recently Relevant to Health Maintenance Insurance [employer] [place] [employer] [place] Care Teams Director Of Event Sales Relationship Specialty Start Date End Date Alix Hernandez PA PCP - General Family Medicine 09/25/20
--- OUTSIDE RECORDS SUMMARY | 2024-10-21 12:29 | XMS_ITS | Clinical Summary ---
Author Organization [facility] Care Team Providers Care Player Piano Technician Name Role Phone Unavailable Primary Care Provider Unavailabl e Social History Tobacco Use Types Packs/Day Years Used Date Smoking Tobacco: Never Assessed Sex and Gender Information Value Date Recorded Sex Assigned at Not on file Legal Sex Male 10:21 AM EMISSIONS TESTING TECHNICIAN Gender Identity Not on file Sexual Orientation [...]
--- OUTSIDE RECORDS SUMMARY | 2024-10-21 12:29 | XMS_ITS | Patient Health Summary ---
Author Organization [facility] Address [address] [place] [address] Care Team Providers Care Alteration Worker Name Role Phone Paco Tian DO Primary Care Provider [phone] Note from [facility],non-owned Affiliates and Associated Physician Practices is amultiple site organization consisting of ambulatory clinics and hospital sitesin [place], [place], [place] and [place]. This disclosure is being madepursuant to the Care Everywhere program and may not contain all information available regarding this patient. Last updated 18.[facility] Allergies No known active allergies Medications * Be aware that medications may not be up to date on this document. Alwaysverify current medications with the patient. * [place]-3 Fatty Acids (fish oil) 500 MG capsule [...] Comments Blood Pressure 118/82 10/12/2024 7:46 AM FURNITURE REPRODUCER Pulse 65 10/12/2024 7:46 AM FURNITURE REPRODUCER Temperature - - Respiratory Rate 18 2024 1:18 PM FURNITURE REPRODUCER Oxygen Saturation 98% 10/12/2024 7:46 AM FURNITURE REPRODUCER Inhaled Oxygen Concentration - - Weight 102.5 kg (226 lb) 10/12/2024 7:46 AM FURNITURE REPRODUCER Height 177.8 cm (5' 10 ) 2024 1:18 PM FURNITURE REPRODUCER Body Mass Index 32.43 2024 1:18 PM FURNITURE REPRODUCER Procedures * LAB RESULTS ORDER(Performed 10/18/2024) * URINALYSIS - POINT OF CARE(Performed 10/12/2024) [...] * LAB RESULTS ORDER(Performed 01/19/2022) Results * LAB RESULTS ORDER (10/18/2024) Only the most recent of4 resultswithin the time period is included. 10/18/2024 Narrative 10/18/2024 Ordered by an unspecified provider. Scanned Document LAB - THERAPEUTIC DR UG MONITORING ORDERABLES * URINALYSIS - POINT OF CARE (10/12/2024) Clarity UA POCT clear Color UA POCT yellow Leukocyte UA negative Negative Nitrite UA POCT negative Negative Urobilinogen UA 0.2 0.1 - 1.0 Protein UA POCT negative Negative pH UA 6.0 5.0 - 8.0 pH units Blood UA negative Negtive Specific Archbold UA POCT 1.010 1.002 - 1.030 Ketone UA negative Negative Bilirubin UA POCT negative Negative Glucose UA negative Negative Urine URINE / Unknown 10/12/2024 Brianda Jiang RETAIL PRICING COORDINATOR-CONTRACTING MANAGER LAB - POINT OF C ARE ORDERABLES * HEMOGLOBIN A1C - POINT OF CARE (HgbA1C) (08/19/2024 8:42 AM FURNITURE REPRODUCER) [facility] Hemoglobin A1c POCT 5.4 % [facility] Expiration Date 08/10/2025 [facility] Lot # [id number] [facility] QC Verified Yes Yes [facility] Blood BLOOD SPECIMEN / Unknown 08/19/2024 8:42 AM FURNITURE REPRODUCER Paco Tian DO LAB - POINT OF CARE ORDERABLES [facility] [address], [address] [phone] * (ABNORMAL) COMPREHENSIVE METABOLIC PANEL (08/08/2024 7:12 AM FURNITURE REPRODUCER) [facility] Glucose 106(H) 65 - 99 mg/dL [...] 46 U/L [facility] Comment: Test Performed at: [facility] [address] [place] [address] CHATO REED MD 08/08/2024 7:12 AM FURNITURE REPRODUCER 08/08/2024 7:12 AM FURNITURE REPRODUCER Paco Tian DO LAB - CHEMISTRY PATRICKE SHAKEEL [facility] [address] [place] [address] * CBC WITH DIFFERENTIAL (08/08/2024 7:10 AM FURNITURE REPRODUCER) White Blood Cell Count 5.5 3.8 - [...] 1.1 % [facility] Comment: Test Performed at: [employer] [address] CHATO REED MD 08/08/2024 7:10 AM FURNITURE REPRODUCER 08/08/2024 7:11 AM FURNITURE REPRODUCER Paco Jaylan DO LAB - HEMATOLOGY ORD ERABLES Performing Organization Address [facility] de Phone Number [facility] [address] [place] [address] * HEMOGLOBIN A1C (08/08/2024 7:07 AM FURNITURE REPRODUCER) Pathologist [facility] Hemoglobin A1c TNP % of total Hgb [facility] Comment: TEST NOT PERFORMED The specimen type required for the add-on test was not originally collected. Test Performed at: [facility] [address] [place] [address] CHATO REED MD 08/08/2024 7:07 AM FURNITURE REPRODUCER 08/08/2024 7:08 AM FURNITURE REPRODUCER Paco Tian DO LAB - CHEMISTRY ORDE RABLES Performing Organization Address [facility] de Phone Number [facility] [address] [place] [address] * PROSTATE SPECIFIC ANTIGEN SCREEN (08/08/2024 7:07 AM FURNITURE REPRODUCER) PSA 0.88 < OR = 4.00 ng/mL [...] or absence of disease. Test Performed at: [facility] [place] [address] CHATO REED MD 08/08/2024 7:07 AM FURNITURE REPRODUCER 08/08/2024 7:08 AM FURNITURE REPRODUCER Paco Tian DO LAB - CHEMISTRY K[facility]KO [facility]ONTILLAADRI[facility] Organization Address City/State/ZIP Co de Phone Number [facility] [address] [place] [address] * (ABNORMAL) LIPID PROFILE (08/08/2024 7:07 AM FURNITURE REPRODUCER) Cholesterol 212(H) <200 mg/dL [facility] HDL Cholesterol [...] LDL-C. Reinaldo SS et al. ANTOINE. 2013;310(19): 3654-1007 (http://education.[employer].Proximagen/faq/AGZ294) CHOL/HDLC RATIO 5.3(H) <5.0 (calc) [facility] Non HDL Cholesterol 172(H) <130 mg/dL (calc) [facility] Comment: For patients with diabetes plus 1 major ASCVD risk factor, treating to a non-HDL-C goal of <100 mg/dL (LDL-C of <70 mg/dL) is considered a therapeutic option. Test Performed at: [facility] [address] [place] [address] CHATO REED MD 08/08/2024 7:07 AM FURNITURE REPRODUCER 08/08/2024 7:08 AM FURNITURE REPRODUCER Paco Tian DO LAB - CHEMISTRY [place] [facility] [address] [place] [address] * COLOGUARD TEST (11/06/2023 8:30 AM FURNITURE REPRODUCER) Cologuard Negative Negative [facility] Comment: NEGATIVE TEST RESULT. A negative [...] Cassidy et al, N Engl J Med 2014;370(14):5529-7764) The normal value (reference range) for this assay is negative. COLOGUARD RE-SCREENING RECOMMENDATION: Periodic colorectal cancer screening is an important part of preventive healthcare for asymptomatic individuals at average risk for colorectal cancer. Following a negative Cologuard result, the [place] [employer] Society and U.S. Multi-Society Task Force screening guidelines recommend a Cologuard re-screening interval of 3 years. References: [place] [employer] Guideline for Colorectal Cancer Screening: https://www.cancer.org/cancer/sazfj-jixoms-wrkgdh/mwieuefpe-mrtsmtdfz-omjklku/ acs-recommendations.html.; Mateo MCGUIRE, Delon CHANG, Shadia McintoshK, Colorectal Cancer Screening: Recommendations for Physicians and Patients from the U.S. Multi-Society Task Force on Colorectal Cancer Screening , Am J Gastroenterology 2017; 112:0594-0358. TEST DESCRIPTION: Composite algorithmic analysis of stool [...] Bryan. et al, N Engl J Med 2014;370(14):8029-7653.) Cologuard may produce a false negative or false positive result (no colorectal cancer or precancerous polyp present at colonoscopy follow up). A negative Cologuard test result does not guarantee the absence of CRC or advanced adenoma (pre-cancer). The current Cologuard screening interval is every 3 years. ([place] [employer] and U.S. Multi-Society Task Force). Cologuard performance data in a 10,000 patient pivotal study using colonoscopy as the reference method can be accessed at the following location: www.[employer]/results. Additional description of the Cologuard test process, warnings and precautions can be found at www.cologuard.com. Stool STOOL SPECIMEN / Unknown 11/06/2023 8:30 AM FURNITURE REPRODUCER 11/07/2023 6:14 AM FURNITURE REPRODUCER Paco Tian DO LAB - CHEMISTRY KIKO BECKFORD [facility] [address] [place] [address] [place] [address] [facility] [address] [place] [address]. [place] [address] Care Teams Alteration Worker Relationship Specialty Start Date End Date Paco Tian DO [address] [address] PCP - General Family Medicine 10/09/23
--- OUTSIDE RECORDS SUMMARY | 2024-10-21 12:29 | XMS_ITS | Referral Summary ---
Author Organization [facility] Address [address] [place] [address] Care Team Providers Care Case Mgr Name Role Phone Alix Hernandez Primary Care [...] PM CDT): Start OTC Vitamin D supplement, [phone] international units daily Assessment & Plan (10/01/2022 4:23 PM FIELD CASHIER): Recheck levels with next set of labs Chronic pancreatitis (CMS/HCC) 02/20/2016 Hypertriglyceridemia 02/20/2016 Assessment & Plan (05/18/2023 4:22 PM CDT): Stable, no changes. Continue current regimen with Vascepa and Lopid Assessment & Plan (10/01/2022 4:23 PM FIELD CASHIER): Lipid panel worsening Noncompliant with diet/exercise Will [...] on file Legal Sex Male 5:28 PM FIELD CASHIER Gender Identity Not on file Sexual Orientation Not on file Last Filed Vital Signs Vital Sign Reading Time Taken Comments Blood Pressure 134/89 09/08/2023 11:35 PM FIELD CASHIER Pulse 75 09/08/2023 11:58 PM FIELD CASHIER Temperature 36.6 C (97.9 F) 09/08/2023 9:49 PM FIELD CASHIER Respiratory Rate 20 09/08/2023 11:58 PM FIELD CASHIER Oxygen Saturation 97% 09/08/2023 11:58 PM FIELD CASHIER Inhaled Oxygen Concentration - - Weight 104.3 kg (229 lb 15 oz) 09/08/2023 9:49 P M FIELD CASHIER Height 177.8 cm (5' 10 ) 09/08/2023 9:49 PM FIELD CASHIER Body Mass Index 32.99 09/08/2023 9:49 PM FIELD CASHIER Plan of Treatment Not on file Procedures [...] LAB BLOOD ORDERABLES Final Resul t [facility] [id number] [place] [phone] from Last 3 Months or Most Recently Relevant to Health Maintenance [place] Care Teams Case Mgr Relationship Specialty Start Date End Date Alix Hernandez PA PCP - General Family Medicine 09/25/20
== END 2024-10-21 12:23 | disposition home or self-care (01) ==
PROVIDERS: Visit Provider Urology
DX: R14.0 Abdominal distension (gaseous) (principal); Z87.442 Personal history of urinary calculi
CPT/HCPCS: 74018